=== PATIENT | female | born 1980 | race Caucasian/White ===

== ENCOUNTER 2020-06-23 14:07 | Emergency (ER) | payer OTHER, SELFPAY ==
[2020-06-23 16:22] VITALS: BP 113/71; PULSE 88; RESP 16; TEMP 37.2; O2SAT 99; BMI 20.3
--- NOTE | 2020-06-23 16:26 | ED.GENADULT ---
HPI - General Adult General Chief complaint: Upper Respiratory Symptoms Stated complaint: flu like symptoms Time Seen by Provider: 06/23/20 16:16 Source: patient Mode of arrival: ambulatory Limitations: no limitations History of Present Illness HPI narrative: 39-year-old female presenting to the ED with complaints of generalized fatigue, chills, body aches, runny nose, sore throat which has resolved, runny nose, nausea and Increased urgency/frequency times a few days worse today. Reports that she was seen by her primary care provider and had a COVID swab yesterday Although results are pending still at this time. denies any other additional complaints or concerns at this time. Related Data Home Medications Medication Instructions Recorded Confirmed fluconazole 150 mg tablet 150 mg PO ONCE 06/23/20 norgestimate-ethinyl estradiol 1 tab PO DAILY 06/23/20 0.18 mg/0.215mg/0.25mg-35 mcg(28)tablet Previous Rx's Medication Instructions Recorded acetaminophen-codeine 1 tab PO Q8H PRN #14 tab 06/23/20 azithromycin See Rx Instructions .ROUTE 06/23/20 .COMPLEX #6 tab cyclobenzaprine 10 mg PO TID PRN #14 tab 06/23/20 Allergies Allergy/AdvReac Type Severity Reaction Status Date / Time No Known Allergies Allergy Verified 06/23/20 16:17 Review of Systems Review of Systems: Constitutional : No Fever, ENT/Mouth : No Ear Pain, No Nasal Congestion, No Sinus Pain, No Hoarseness, No sore throat, No Rhinorrhea, No Swallowing Difficulty Eyes: No Eye Pain, No Swelling, No Redness, No Foreign Body, No Discharge, No Vision Changes Cardiovascular : No Chest Pain, No SOB, No Dyspnea on Exertion, No Orthopnea, No Edema, No Palpitations Respiratory : No Wheezing, No Dyspnea Gastrointestinal : No Vomiting, No Diarrhea, No Constipation, No abdominal Pain, Genitourinary : No Flank Pain, No Urinary Flow Changes, No Hesitancy Musculoskeletal : No joint pain, No Joint Swelling Skin : No Skin Lesions, No rash Neuro : No Weakness, No Headache Endocrine : No Polyuria, No Polydipsia, No Temperature Intolerance Yes all other systems are reviewed and are negative [facility] Past Medical History Attestation statement: The following information was validated with the patient. Medical History Insomnia Social History Social History Advance Directives: No Advance Directives Information Provided: No Physical Exam Vital Signs: Vital Signs: Vital Signs Temp Pulse Resp BP Pulse Ox 06/23/20 16:22 99.0 F 88 16 113/71 99 Body Mass Index 20.3 vital signs have been reviewed as normal and appeared to be correct. Blood pressure normal. Heart rate normal. Respiration rate normal. Temperature normal. Oxygen saturation normal. Appearance: Alert. Oriented X3. No acute distress. Head: Normal external exam. Normocephalic. Atraumatic. No Kendrick signs noted. No raccoon eyes noted Eyes: PERRLA. EOMI. Conjunctiva and sclera normal. Eyelids normal. ENT: EAC normal. TM's Normal. Pharynx normal. Uvula midline. Moist mucous membranes. No trismus noted. No drooling noted. No muffled voice noted. Neck: Normal inspection. Neck supple. FROM. No adenopathy. Thyroid Normal. No meningeal signs. No neck mass noted. CVS: Normal heart rate and rhythm. Heart sound normal. No murmurs noted. Pulses normal throughout. Respiratory: No respiratory distress. Painless inspiration. Breath sounds normal. No wheezes/rales/rhonchi noted. Chest nontender. No accessory muscle usage noted or decreased air movement noted. Abdomen: Soft and nontender. Bowel sounds normal in all 4 quadrants. No distention noted. No organomegaly noted. No visible injury noted. Back: No CVA tenderness. Full range of motion noted. Skin: Skin warm and dry. Normal skin color. Normal skin turgor. No rashes/lesions/lacerations noted. Extremities: No lower extremity edema. Extremities exhibit normal range of motion. Extremities nontender. Neuro: Oriented X 3. No motor deficit. No sensory deficit. Reflexes normal. Course Course Course Narrative: 39-year-old female presenting to the ED with complaints of generalized fatigue, chills, body aches, runny nose, sore throat which has resolved, runny nose, nausea and Increased urgency/frequency times a few days worse today. Reports that she was seen by her primary care provider and had a COVID swab yesterday Although results are pending still at this time. denies any other additional complaints or concerns at this time. - Plan: CXR, UA and UHCG And re-evaluate. Reevaluation(s) Reevaluation #1: UA within normal limits no evidence of UTI. Chest x-ray within normal limits no acute processes noted. Will DC home with symptomatic treatment along with instructions to return if any new or worsening symptoms to follow-up with primary care provider. Patient understands agrees the plan. Time: 17:31 Medical Decision Making Lab Data Labs: Lab Results 06/23/20 Range/Units 16:59 Urine Color YELLOW Urine Appearance HAZY Urine pH 6.0 (5.0-8.0) Ur Specific [place] 1.025 (1.005-1.025) Urine Protein NEG (NEG-TRACE) MG/DL Urine Glucose (UA) NEG (NEG) MG/DL Urine Ketones NEG (NEG) MG/DL Urine Blood NEG (NEG) Urine Nitrite NEG (NEG) Ur Leukocyte Esterase NEG (NEG) Urine Test NEGATIVE (NEGATIVE) Imaging Data Chest x-ray: Attestation: I personally reviewed and interpreted this imaging study as follows: Radiologist's impression: FINDINGS: The lungs are clear. The vascularity is normal. There is no airspace consolidation or groundglass opacity. No effusion. The heart is normal in size. The hilar and mediastinal contours are normal. No acute bony abnormality. IMPRESSION: Unremarkable examination. Discharge Plan Discharge Clinical Impression: Acute viral syndrome Patient Disposition: Home, Self-Care Instructions: COVID-19 (Coronavirus Disease 2019) (ED) Additional Instructions: Based on your symptoms and history we have sent a COVID-19. Although your RESULT IS PENDING at this time. RESULTS should return within 72 hours. At this time you will be contacted with either NEGATIVE OR POSITIVE results. -Please wait until we contact you for your results. At this time you will be okay for discharge. Please plan for self quarantine for up to 14 days. Do not expose yourself to others. You may not go to work. If testing does come back negative you may return to activities as long as you are no longer having any symptoms for at least 3 days. Please continue to follow cold instructions and wash your hands frequently. You may take Tylenol as directed on the bottle for pain or fever. Patient seen in the emergency department on 06/23/2020 and should be excused from work until negative test results AND until 72 hours without any symptoms AND at least 10 days have passed since symptoms first appeared or since last exposure to COVID-19 positive patient CDC Guidelines for home isolation: - Stay away from others - WEAR A MASK if you are sick AND STAY HOME - Cover your mouth and nose with a tissue when you cough or sneeze. Dispose of tissues in a lined trash can and wash your hands immediately with soap and water for at least 20 seconds. If soap and water are not available, clean hands with alcohol-based hand certified medication technician that contains at least 60% alcohol. - Clean your hands often with soap and water for at least 20 seconds - Avoid touching your eyes, nose and mouth with unwashed hands - Do not share dishes, drinking glasses, cups, eating utensils, towels, or bedding with other people in your home. After using these items, wash them thoroughly with soap and water or put in the live source operator. - Clean high-touch surfaces in your isolation area ( sick room and bathroom) every day; let a caregiver clean and disinfect high-touch surfaces in other areas of the home. Clean the area or item with soap and water or another detergent if it is dirty. Then, use a household disinfectant. - Limit contact with pets and animals: If you must care for a pet, wash your hands before and after interacting with them). Prescriptions: New azithromycin 250 mg tablet See Rx Instructions .ROUTE .COMPLEX Qty: 6 RF: 0 acetaminophen-codeine 300-30 mg tablet 1 tab PO Q8H PRN (Reason: pain) Qty: 14 RF: 0 cyclobenzaprine 10 mg tablet 10 mg PO TID PRN (Reason: muscle spasm) Qty: 14 RF: 0 No Action fluconazole 150 mg tablet 150 mg PO ONCE RF: 0 norgestimate-ethinyl estradiol 0.18/0.215/0.25 mg-35 mcg (28) tablet 1 tab PO DAILY RF: 0 Referrals: Duglas Montez FNP-BC [Primary Care Provider] - 2 days Stand Alone Forms: Work/School Release Print Language: Bahraini
--- NOTE | 2020-06-23 16:35 | XR_ITS ---
EXAMINATION: XR CHEST CLINICAL INFORMATION: COVID like symptoms COMPARISON: None TECHNIQUE: Portable upright AP view of the chest was obtained. FINDINGS: The lungs are clear. The vascularity is normal. There is no airspace consolidation or groundglass opacity. No effusion. The heart is normal in size. The hilar and mediastinal contours are normal. No acute bony abnormality. IMPRESSION: Unremarkable examination.
[2020-06-23 17:13] LABS: Glucose Urine UA NEG (NEG); Leukocyte Esterase Urine NEG (NEG); Nitrite Urine NEG (NEG); Specific Gravity - Urine 1.025 (1.005-1.025); Urine Blood NEG (NEG); Urine Ketones NEG (NEG); Urine Protein NEG (NEG-TRACE)
[2020-06-23 17:16] LABS: Appearance Urine HAZY; Color Urine YELLOW
[2020-06-23 17:17] LABS: UPreg QC Valid YES; Urine Pregnancy NEGATIVE (NEGATIVE)
== END 2020-06-23 17:41 | disposition home or self-care (01) ==
PROVIDERS: Physician Assistant Medical; Emergency Provider Emergency Medicine Emergency Medical Services; PCP Nurse Practitioner Family
DX: B34.9 Viral infection, unspecified (principal)
CPT/HCPCS: 71045; 81003; 81025; 99283; 99284

== ENCOUNTER 2021-08-10 14:29 | Outpatient (REF) | payer OTHER, SELFPAY ==
--- NOTE | ~2021-08-10 | XR_ITS ---
EXAMINATION: XR CHEST CLINICAL INFORMATION: Cough COMPARISON: Chest radiograph 06/23/2020 TECHNIQUE: 2 views of the chest were obtained. FINDINGS: The lungs are clear. There is no airspace consolidation or groundglass opacity or effusion. The costophrenic sulci are clear. The heart is normal in size. The hilar and mediastinal contours are normal. Bony structures suggest some faint callus formation overlying the right posterior lateral ninth rib suggesting healing occult fracture. No visible fracture line or destructive process. XR/XR chest 2V IMPRESSION: 1. No infiltrate or effusion. 2. Suspect healing fracture right posterior lateral ninth rib.
== END 2021-08-10 14:30 | disposition home or self-care (01) ==
LOC: HO.HMGCX 14:29
PROVIDERS: PCP Nurse Practitioner Family; Visit Provider Nurse Practitioner Family
DX: R05.9 Cough, unspecified (principal)
CPT/HCPCS: 71046

== ENCOUNTER 2023-05-16 14:49 | Outpatient (AMB) | payer OTHER, SELFPAY ==
[2023-05-16 15:00] VITALS: BP 108/70; PULSE 67; O2SAT 100; BMI 23.9
--- NOTE | 2023-05-16 15:00 | A.OFFPC_ITS ---
Vital Signs 05/16/23 15:00 Height 5 ft 7 in Weight 152 lb 8 oz BMI 23.9 BP 108/70 Blood Pressure Location Rt brachial Position Sitting Pulse 67 Pulse Source Pulse Oximeter Pulse Oximetry (%) 100 Oxygen Delivery Method Room Air Intake Visit Reasons: Annual PE Allergies No Known Allergies Allergy (Verified 05/16/23 15:02) Medication List - Last Reconciled 05/16/23 by MAYNOR Person trazodone 100 mg (2 x 50 mg) PO BEDTIME PRN 90 days Tobacco use date assessed: 05/16/23 Dental Screening Dental Screen Date: 05/16/23 Did you have a dental visit in the last 12 months?: No Did you have a dental problem in the last 6 months where you did not have access to dental care?: No Was dental information given to patient?: Patient has dentist HPI Annual PE HPI Details Pt is here for a PE. Will order labs. 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 Due for mammo, will order. Pt has a hx of skin cancer. Will refer to derm. 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 Donnie Delcid, Chen Zurita, Nik العلي and colleagues, with an educational john paul from [employer]. Review of Systems Const Denies chills and Denies fever(s) Eyes Denies blurry vision ENT Denies vertigo, Denies dizziness and Denies sore throat Card Denies chest pain at rest, Denies chest pain with activity, Denies diaphoresis, Denies dyspnea and Denies dyspnea on exertion Resp Denies cough, Denies dyspnea, Denies dyspnea on exertion and Denies wheezing GI Denies abdominal pain, Denies melena, Denies hematochezia, Denies constipation, Denies diarrhea and Denies loose stools Denies hematuria Musc Denies numbness and Denies tingling Skin/Breast Denies lesions Neuro Denies vertigo, Denies dizziness, Denies numbness and Denies tingling Psych Denies anxiety, Denies depression, Denies homicidal ideation, Denies suicidal ideation and Denies other (substance abuse) Aller/Immun Denies wheezing Physical exam (Primary Care) Vital Signs: Last Vital Signs Pulse 67 05/16/23 15:00 BP 108/70 05/16/23 15:00 Pulse Ox 100 05/16/23 15:00 Oxygen Delivery Method Room Air 05/16/23 15:00 BMI result Body Mass Index 23.9 Tobacco/Smoking Status: Tobacco use Status Tobacco use date assessed 05/16/23 05/16/23 15:04 Patient Tobacco Use Status Current everyday Tobacco 05/16/23 15:04 e-Cigarette/Vaping Use Never Used 05/16/23 15:04 Thrive Assessment: Date of Thrive Assessment Date Thrive assessed 11/29/21 05/16/23 15:04 Const General: cooperative Nutritional Appearance: well nourished Orientation/consciousness: patient oriented x3 HENMT Head: Yes normal to inspection, Yes normocephalic and Yes atraumatic Ears: TM's normal bilaterally Eyes General: appearance normal, both eyes and all related structures Alignment and Position: alignment normal and position normal Neck Neck: Yes normal visual inspection and Yes no lymphadenopathy Thyroid: Thyroid normal Resp Effort & Inspection: normal respiratory effort Auscultation: clear to auscultation bilaterally Cardio Rate: regular rate Rhythm: regular rhythm Heart sounds: S1 normal heart sound present, S2 normal heart sound present and no murmurs GI Palpation (GI): Soft to palpation and nontender Auscultation: normal bowel sounds Skin Rashes: no rashes Neuro General: patient oriented x3, moves all extremities, no focal motor deficits and deep tendon reflexes 2+ bilaterally Romberg Test: Negative Psych Appearance: grossly normal Mental Status: mental status grossly normal Speech and movement: Normal speech and movement present Affect: normal affect Attitude: cooperative Thought process: Normal thought process present Thought content: Normal thought content present Insight: Good insight present (Psych) Judgement: Good judgement present (Psych) Assessment and Plan Assessment & Plan (1) Physical exam: Code(s): Z00.00 - Encounter for general adult medical examination without abnormal findings Plan: Labs ordered (2) Skin cancer: Code(s): C44.90 - Unspecified malignant neoplasm of skin, unspecified Plan: Referred to derm Plan The patient agreed to the use of a medical billing specialist for this encounter. Scribed for MAYNOR Contreras by Amy Mcknight medical billing specialist, on 05/16/2023 at 15:05 EST. Orders: Orders TSH reflex Free T4 Today Z00.00 - Encounter for general adult medical examination without abnormal findings UA CC w/rflx Micro + Cult Today Z00.00 - Encounter for general adult medical examination without abnormal findings Lipid Panel Today Z00.00 - Encounter for general adult medical examination without abnormal findings Complete Blood Count Auto Diff Today Z00.00 - Encounter for general adult medical examination without abnormal findings Comprehensive [place]. Panel Fast Today Z00.00 - Encounter for general adult medical examination without abnormal findings MM screening mammo BI Today Z12.31 - Encounter for screening mammogram for malignant neoplasm of breast Referrals Dermatology Referral C44.90 - Unspecified malignant neoplasm of skin, unspecified Coding Level of Care Code Est Pt Prev Care 40-64y(79866) Diagnoses Physical exam Z00.00 Skin cancer C44.90
== END 2023-05-16 15:50 | disposition home or self-care (01) ==
PROVIDERS: Visit Provider Nurse Practitioner Family
DX: Z00.00 Encounter for general adult medical examination without abnormal findings (principal); C44.90 Unspecified malignant neoplasm of skin, unspecified
CPT/HCPCS: 99396

== ENCOUNTER 2023-11-14 15:38 | Outpatient (AMB) | payer OTHER, SELFPAY ==
--- NOTE | 2023-11-14 15:45 | MHC.PC.OV ---
Vital Signs 11/14/23 15:47 Height 5 ft 7 in Weight 151 lb BMI 23.6 BP 110/70 Blood Pressure Location Lt brachial Position Sitting Pulse 65 Pulse Source Pulse Oximeter Pulse Oximetry (%) 99 Oxygen Delivery Method Room Air Intake Visit Reasons: 6 Month follow up Intake Note: pt is here for 6 month follow up Ore Sampler Required: No Accompanied by: Self / Same As Patient Allergies No Known Allergies Allergy (Verified 11/14/23 17:17) Medication List - Last Reconciled 11/14/23 by MAYNOR Person trazodone 100 mg (2 x 50 mg) PO BEDTIME PRN 90 days Tobacco use date assessed: 11/14/23 Dental Screening Dental Screen Date: 11/14/23 Did you have a dental visit in the last 12 months?: Yes Did you have a dental problem in the last 6 months where you did not have access to dental care?: No Was dental information given to patient?: Patient has dentist HPI 6 Month follow up HPI Details Pt c/o increased fatigue. She reports feeling very sluggish throughout the day. She also reports perimenopausal symptoms. Will order labs including FSH and LH. Encouraged pt to have her PE labs performed. Denies fever, chills, and dizziness. 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 How often do you have a drink containing alcohol?: Monthly or less 2. How many drinks containing alcohol do you have on a typical day when you are drinking?: 1 or 2 3. How often do you have six or more drinks on one occasion?: Never Total Score: 1 Score Reviewed/Action Taken: Yes JAMARI-7 AMB Questionnaire JAMARI-7 Date JAMARI - 7 assessed: 11/29/21 Feeling nervous, anxious, or on edge: 0 = Not at all Not being able to stop or control worryin = Not at all Worrying too much about different things: 0 = Not at all Trouble relaxin = Not at all Being so restless that it is hard to sit still: 0 = Not at all Becoming easily annoyed or irritable: 0 = Not at all Feeling afraid as if something awful might happen: 0 = Not at all Total JAMARI-7 score (0-4 normal; 5-9 mild; 10-14 moderate; 15-21 severe): 0 Source: Developed by Drs. Donnie Delcid, hCen Zurita, Nik العلي and colleagues, with an educational john paul from [employer]. JAMARI-7 Assessment Billing JAMARI-7 Assessment Tool: JAMARI-7 Assessment 14858 Review of Systems Const Reports as per HPI Physical exam (Primary Care) Vital Signs: Last Vital Signs Pulse 65 11/14/23 15:47 BP 110/70 11/14/23 15:47 Pulse Ox 99 11/14/23 15:47 Oxygen Delivery Method Room Air 11/14/23 15:47 BMI result Body Mass Index 23.6 Tobacco/Smoking Status: Tobacco use Status Tobacco use date assessed 11/14/23 11/14/23 15:51 Patient Tobacco Use Status Current everyday Tobacco 11/14/23 15:51 e-Cigarette/Vaping Use Never Used 11/14/23 15:51 Thrive Assessment: Date of Thrive Assessment Date Thrive assessed 11/29/21 11/14/23 15:51 Const General: cooperative Orientation/consciousness: patient oriented x3 Resp Auscultation: clear to auscultation bilaterally Cardio Rate: regular rate Rhythm: regular rhythm Heart sounds: S1 normal heart sound present, S2 normal heart sound present and no murmurs Neuro General: patient oriented x3 Extrem Right lower extremity: no edema Left lower extremity: no edema Psych Appearance: grossly normal Mental Status: mental status grossly normal Speech and movement: Normal speech and movement present Affect: normal affect Attitude: cooperative Thought process: Normal thought process present Thought content: Normal thought content present Insight: Good insight present (Psych) Judgement: Good judgement present (Psych) Assessment and Plan Assessment & Plan (1) Fatigue: Code(s): R53.83 - Other fatigue Plan: Labs ordered Plan The patient agreed to the use of a medical claims manager for this encounter. Scribed for HILARIO Contreras-NIVIA by Amy Mcknight medical claims manager, on 11/14/2023 at 16:05 EST. Orders: Orders Lutenizing Hormone Today R53.83 - Other fatigue Estrogen Today R53.83 - Other fatigue IRON PROFILE Today R53.83 - Other fatigue Ferritin Today R53.83 - Other fatigue Follicle Stimulating Hormone Today R53.83 - Other fatigue Vitamin B12 and Folate Today R53.83 - Other fatigue Tick-borne Disease Molecular Today R53.83 - Other fatigue Coding Level of Care Code Est Pt Level 3 (11624) Diagnoses Fatigue R53.83 Additional Codes JAMARI-7 Assessment Billing - JAMARI-7 Assessment Tool: JAMARI-7 Assessment [id number] ([id number])
[2023-11-14 15:47] VITALS: BP 110/70; PULSE 65; O2SAT 99; BMI 23.6
== END 2023-11-14 16:54 | disposition home or self-care (01) ==
PROVIDERS: PCP Nurse Practitioner Family; Visit Provider Nurse Practitioner Family
DX: R53.83 Other fatigue (principal)
CPT/HCPCS: 99213

== ENCOUNTER 2023-11-18 07:52 | Outpatient (REF) | payer OTHER, SELFPAY ==
[2023-11-18 11:55] LABS: MANUAL DIFF FLAG NO
[2023-11-18 12:01] LABS: Basophils Absolute Auto 0.1 X10*3/uL (0.0-0.2); Basophils Percent Auto 1.5 % (0-2); Eosinophils Absolute Auto 0.1 X10*3/uL (0.0-0.4); Eosinophils Percent Auto 1.4 % (0-4); Hematocrit 41.6 % (37.0-47.0); Hemoglobin 13.7 g/dl (12.0-16.0); Imm Gran Abs Auto 0.02 X10*3/uL (0.00-0.03); Imm Gran Pct Auto 0.3 % (0.0-0.4); Lymphocytes Absolute Auto 2.3 X10*3/uL (1.2-4.9); Lymphocytes Percent Auto 39.2 % (20-40); Mean Corpuscular HGB Conc 32.9 g/dl (31.0-35.0); Mean Corpuscular Hemoglobin 29.4 pg (27.0-33.0); Mean Corpuscular Volume 89.3 fL (80.0-98.0); Mean Platelet Volume 9.2 fL (9.4-12.3); Monocytes Absolute Auto 0.4 X10*3/uL (0.1-1.2); Monocytes Percent Auto 7.5 % (2-11); Neutrophils Absolute Auto 2.9 x10*3/uL (2.0-8.3); Neutrophils Percent Auto 50.1 % (45-73); Platelet Count 271 X10*3/uL (160-400); Red Blood Count 4.66 X10*6/uL (4.20-5.50); Red Cell Distribution Width 13.2 % (11.0-16.0); White Blood Count 5.9 X10*3/uL (4.8-10.8)
[2023-11-18 12:35] LABS: Appearance Urine Cloudy; Color Urine Yellow; Glucose Urine UA Negative (Negative); Leukocyte Esterase Urine Negative (Negative); Nitrite Urine Negative (Negative); PH 5.5 (5.0-9.0); Urine Blood Negative (Negative); Urine Ketones Negative (Negative); Urine Protein Negative (Neg-Trace)
[2023-11-18 12:39] LABS: Alanine Aminotransferase 10 U/L (0-31); Albumin Level 4.3 g/dL (3.5-5.0); Alkaline Phosphatase 60 U/L (39-117); Anion Gap 12 (12-20); Aspartate Amino Transferase 13 U/L (5-31); Bilirubin Total 0.3 mg/dL (0.0-1.0); Blood Urea Nitrogen 13 mg/dL (9-16); Calcium 9.5 mg/dL (8.4-10.2); Carbon Dioxide 26 mmol/L (22-29); Chloride 106 mmol/L (96-108); Cholesterol 191 mg/dL (<200); Estimated Glomerular Filt Rate > 60; Glucose Fasting 89 mg/dL (60-99); HDL Cholesterol 66 mg/dL (>40); Iron 94 mcg/dL (30-160); LDL Cholesterol Calculated 107 mg/dL (<100); Percent Iron Saturation 38 % (15-50); Potassium 4.4 mmol/L (3.3-5.1); Sodium 140 mmol/L (135-145); Total Iron Binding Capacity 247 mcg/dL (228-428); Triglycerides 90 mg/dL (<150); Unsaturated Iron Binding 153 ug/dL
[2023-11-18 12:46] LABS: Ferritin 45 ng/mL (10-250); TSH reflex Free T4 1.92 uIU/mL (0.32-4.0)
[2023-11-18 12:58] LABS: Folate 6.2 ng/mL (> or = 4.0); Vitamin B12 1656 pg/mL (200-900)
[2023-11-20 04:47] LABS: Lutenizing Hormone 16.4 mIU/mL
[2023-11-21 00:04] LABS: A. Phagocytphilium DNA,RT-PCR NOT DETECTED (NOT DETECTED); Babesia Microti DNA, RT-PCR NOT DETECTED (NOT DETECTED); Borrelia Miyamotoi,DNA RT-PCR NOT DETECTED (NOT DETECTED); E.Chaffeensis DNA RT-PCR NOT DETECTED (NOT DETECTED); Lyme(Borrelia ssp)DNA RT-PCR NOT DETECTED (NOT DETECTED)
[2023-11-25 17:53] LABS: Estrogen 267 pg/mL
== END 2023-11-18 07:53 | disposition home or self-care (01) ==
LOC: HO.HMGCLDS 07:52
PROVIDERS: PCP Nurse Practitioner Family; Visit Provider Nurse Practitioner Family
DX: Z00.00 Encounter for general adult medical examination without abnormal findings (principal); Z13.6 Encounter for screening for cardiovascular disorders; R53.83 Other fatigue
CPT/HCPCS: 36415; 80053; 80061; 81003; 82607; 82672; 82728; 82746; 83001; 83002; 83540; 84443; 85025; 87468; 87469; 87478; 87484; 87798

== ENCOUNTER 2024-02-19 13:30 | Outpatient (AMB) | payer OTHER, SELFPAY ==
--- OUTSIDE RECORDS SUMMARY | 2024-02-19 13:33 | XMS_ITS | Continuity of Care Document ---
Author Organization [facility] Address [address] [place] [id number]- Care Team Providers Care Military Professional Name Role Phone Melida TAI, Duglas Cedeno Primary Care Physician [phone] Encounter [facility] Date(s): 11/22/22 - 11/29/22 [facility] [address] [place] [id number]- Encounter Diagnosis PFO - Patent foramen ovale(Discharge Diagnosis) - 11/22/22 Abnormal echocardiogram(Discharge Diagnosis) - 11/22/22 Tobacco use(Discharge Diagnosis) - 11/22/22 Attending Physician: Demi Holcomb MD Allergies, Adverse Reactions, Alerts No Known Allergies Immunizations Given and Recorded Vaccine Date Status Refusal Reason influenza virus vaccine, inactivated 11/25/21 Give n influenza virus vaccine, inactivated 08/06/18 Howard rded influenza virus vaccine, inactivated 06/01/11 Howard rded SARS-CoV-2 (COVID-19) mRNA BNT-162b2 vac 01/21/21 Recorded SARS-CoV-2 (COVID-19) mRNA BNT-162b2 vac 12/31/20 Recorded tetanus/diphtheria/pertussis, acel(Tdap) 09/04/13 Recorded tetanus/diphtheria/pertussis, acel(Tdap) 12/31/12 Recorded hepatitis B adult vaccine 03/26/10 Recorded hepatitis B adult vaccine 02/12/10 Recorded Medications traZODone 100 mg oral tablet 100 mg, 1, tablet, By Mouth, Daily at bedtime, Refills 0, Maintenance, 11/23/21 16:10:00 EDT, Partial fill upon patient request if the prescription is for a schedule II opioid drug. Start Date: 11/23/21 Status: Ordered Problem List Condition Confirmation Course Effective Dates Status H ealth Status Informant CVA - Cerebrovascular accident Confirmed Active Abnormal echocardiogram Confirmed Active LV non-compaction cardiomyopathy Confirmed Active PFO - Patent foramen ovale Confirmed Active Tobacco use Confirmed Active Diagnosis Diagnosis Type Effective Dates Health Status Clinical Service Informant PFO - Patent foramen ovale Discharge Diagnosis 11/22/22 Abnormal echocardiogram Discharge Diagnosis 11/22/22 Tobacco use Discharge Diagnosis 11/22/22 Vital Signs Most recent to oldest [Reference Range]: 1 Height 169 cm (11/22/22 3:40 PM) Weight 68.2 kg (11/22/22 3:40 PM) Oxygen Saturation [94-100 %] 100 % (11/22/22 3:40 PM) Pulse Rate [55-90 bpm] 73 bpm (11/22/22 3:40 PM) Body Mass Index [18.5-24.99 kg/m2] 23.88 kg/m2 (11/22/22 3:40 PM) Blood Pressure [90-138/55-84 mm Hg] 108/ 66mm Hg (11/22/22 3:40 PM) Blood pressure sites Arm, right (11/22/22 3:40 PM) Social History Social History Type Response Smoking Status 10 or more cigarette s (1/2 pack or more)/day in last 30 days; Other: 1ppd x 23y; entered on: 11/23/22 Sex Cardiology Outpatient Note * Aicha PETTIT, Demi Rogers: PERFORM Event Display: Cardiology Note Office Authored Date: Patient: ??GAEL STRICKLAND ? Age:??42 Years?Sex:??Female?:??1980?? Indication for Consult follow up care History of Present Illness/Interval History Past visit: ??41-year-old female with PMH significant for Right exotropia, tobacco use (1-pack/day), and oral contraceptive use,??who presented for evaluation of acute onset left-sided numbness/tingling, and weakness while at work. ??She was evaluated in the [facility] emergency room??and initial??head CT was unremarkable,??she had continued symptoms and concern for??left lower extremity drift??andsensory changes in the left upper extremity,??she was recommended [place] K??which she received 11/23. ??She was subsequently admitted to neuro ICU for monitoring.?She had a repeat head CT was stable.?She also had??a brain MRI which showed no stroke??or abnormality.??ECHO with normal LV function. EF: 55-60%. Though, prominent apical trabeculation (? foreshortening, but LV noncompaction not excluded). PFO also noted on bubble study.??LOC with +PFO and lambl's excrescense. BLE US without DVT . ??Per chart review she is described as having resolution of neurologic symptoms prior to discharge. ??I n??discussing with her she has had episodic recurrences in left-sided as well as??now right-sided tingling that occurred post discharge.?? She was taken off OCP and has had headaches as well has??constitutional complaints, hot flashes.?? She cut down from 1-1/2 pack a day smoking to 1 pack a day.??She has not had any??weakness.?? She denies any??facial symptoms or word finding issues.?? She was seen??as an outpatient with telehealth neurology evaluation where??diagnosis of initial stroke was questioned.?? She was referred here for evaluation of PFO.?? She denies??palpitations, chest pain, pressure, heaviness, PND, orthopnea, edema.?? She has not had syncope. ?? Current visit: She denies cardiovascular complaints. ??She has been well since her last visit.? Her 30-day event monitor showed no arrhythmias.?? Question of noncompaction from MRI??resulted inreferral to advanced heart??failure clinic, appreciate Dr. Lange's evaluation.?? She also was noted to have??a PFO.?? We shared the same??question about whether a CVA??had occurred.?? He suggested evaluation with Dr. Bee for potential PFO closure.?? Her primary care provider had stopped her aspirin, Plavix, statin.?? She is off these meds. Physical Exam Vitals & Measurements UT:??73?? BP:??108/66?? SpO2:??100%?? HT:??169??cm?? WT:??68.2??kg?? BMI:??23.88?? Weight lb/oz: 150 lb 6 oz HEENT: EOMI neck: JVD flat Pulm: CTAB Cardiac: RRR no m/r/g GI: soft +BS EXT: no edema Neuro:??grossly nonfocal Skin:??warm and dry Psych: alert and coop Assessment/Plan 1.??PFO - Patent foramen ovale 2.??Abnormal echocardiogram 3.??Tobacco use This is a 42-year-old female here for evaluation of noted issues.?? She was admitted to [facility] with left arm and leg tingling, question leg weakness???concern for acute stroke for which she received tPA.?? She subsequently was admitted??to the neuro ICU, had some improvement in symptoms and resolution prior to discharge??however post discharge had recurrence of left-sided symptoms intermittently as well as??now right-sided symptoms intermittently.?? Her head CT x2 was unremarkable.?? She also had a brain MRI which was normal,??no stroke was noted.?? As part of her work-up shealso had a transthoracic echocardiogram which revealed possible trabeculation??and foreshortening,??possible noncompaction???PFO by??positive bubble study.?? She had normal LV function and no significant valvular disease.?? She underwent LOC??which also??showed??positive bubble study suggestive of small PFO.?? Color- flow does not seem to be present.?She had cardiac MRI showing noncompaction, normal LV function, by this modality she??also was noted??to have small VSD and PFO.?Smoking cessation is imperative.?Her electrocardiogram shows sinus rhythm with a short UT and poor R wave progression, no significant change from prior.?? We had a lengthy discussion about??hospital notation aswell as recent??neurologic evaluation.?? Her post discharge neurology evaluation suggest that she did not have a stroke??and??that her symptoms may be for??other etiology.?? I??would agree that??having bilateral??symptoms??would not make sense for acute??ischemic stroke??as well as??transient recurrent symptoms as she is describing??without other associated findings.? In terms of??cardiac evaluation and discussion about cardioembolic sources of CVA??we reviewed various causes including??PFO/ASD, arrhythmias specifically atrial fibrillation,??LV noncompaction as potential etiologies.?? Of course??it is important to define the original neurologic event??I have not been convinced that -her event represented a CVA,??single neurology follow-up suggested she did not have a CVA. ??Cardiac MRI??was done for noncompaction,??appreciate evaluation with advanced heart failure.??her 30-day event monitor showed no arrhythmias.?She has been referred to Dr. Bee??for further evaluation of PFO closure???her appointment is tomorrow.?At this time she is off aspirin, Plavix, statin therapy.?I do think??think taking aspirin 81 p.o. daily??would be reasonable and have recommended she restartthis.?I will have her follow-up with me in 9 months. Allergies NKA No Known Medication Allergies Home Medications aspirin 81 mg oral tablet, chewable, 81 mg, By Mouth, Daily,?Not taking atorvastatin 40 mg oral tablet, 40 mg= 1 tablet, By Mouth, Daily,?Not taking Plavix 75 mg oral tablet, 75 mg= 1 tablet, By Mouth, Daily, 3 refills,?Not taking traZODone 100 mg oral tablet, 100 mg= 1 tablet, By Mouth, Daily at bedtime Lab Results Cardiology Labs WBC: 9.2 k/mm3 (11/25/21) RBC: 4.36 m/mm3 (11/25/21) Hgb: 13 Gm/dL (11/25/21) Hct: 40.1 % (11/25/21) MCV: 92 femtoliters (11/25/21) MCH: 29.8 pg (11/25/21) MCHC:??32.4 g/dL??Low (11/25/21) Platelet Count: 271 k/mm3 (11/25/21) RDW-SD: 44.9 femtoliters (11/25/21) Nucleated RBC (Automated): 0 #/100 WBC'S (11/25/21) Abs. Neut: 6.2 k/mm3 (11/23/21) Abs. Lymph:??4.2 k/mm3??High (11/23/21) Abs. [place]: 0.6 k/mm3 (11/23/21) Abs. Eo: 0.1 k/mm3 (11/23/21) Abs. Baso: 0.1 k/mm3 (11/23/21) Neut %: 55.1 % (11/23/21) [place] %: 5.7 % (11/23/21) Eos %: 0.8 % (11/23/21) Baso %: 1 % (11/23/21) Imm Gran: 0.4 % (11/23/21) Abs. Imm Gran: 0.1 k/mm3 (11/23/21) INR: 0.9 (11/23/21) Protime (PT): 9.9 seconds (11/23/21) APTT: 25.8 seconds (11/23/21) Sodium: 138 mmol/L (10/10/22) Potassium: 3.9 mmol/L (10/10/22) Chloride: 101 mmol/L (10/10/22) Bicarbonate Level: 26 mmol/L (10/10/22) Glucose Level: 84 mg/dL (10/10/22) Hemoglobin A1C (Monitoring): 4.9 % (11/24/21) BUN: 12 mg/dL (10/10/22) Creatinine-Blood: 1 mg/dL (10/10/22) Calcium: 9.8 mg/dL (10/10/22) AST (SGOT): 14 units/L (11/23/21) Troponin T Quant: <0.01 (11/23/21) Nt-Probnp: 78 pg/mL (10/10/22) Cholesterol: 172 mg/dL (11/24/21) Triglycerides: 96 mg/dL (11/24/21) HDL Cholesterol: 74 mg/dL (11/24/21) LDL Cholesterol: 79 mg/dL (11/24/21) Non HDL Cholesterol: 98 mg/dL (11/24/21) TSH:??5.42 uIU/mL??High (11/24/21) Free T4: 0.93 ng/dL (11/24/21) Diagnostic Impression MRI MRI Cardiac W+W/O Contrast ?? 08:14:45 IMPRESSION: ?? 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 Normal LVEF and RVEF. Possible small VSD and PFO noted. ? I have personally reviewed the images and I agree with this report. WSN: [id number] ? Ordering Physician: Demi Holcomb ?? Signed By: Damaris Enrique MD, V ECG ECG 12-Lead ?? 15:52:36 Please click on pdf link to open report ?? Signed By: June Angel DO ?? ECG 12-Lead ?? 15:52:36 Ventricular Rate: 69 BPM Atrial Rate: 69 BPM P-R Interval: 126 ms QRS Duration: 80 ms Q-T Interval: 386 ms QTC Calculation(Bazett): 413 ms P [place]: 61 degrees R [place]: -16 degrees T [place]: 53 degrees Normal sinus rhythm Low voltage QRS Septal infarct (cited on or before 23-NOV-2021) Abnormal ECG When compared with ECG of 28-DEC-2021 14:58, No significant change was found Confirmed by JUNE ANGEL MD ([id number]) on 09/21/2022 4:18:43 PM ?? [place]: JUNE ANGEL MD ?? Signed By: June Angel DO Echo Echocardiogram - Complete ?? 09:45:05 Summary 1) The LV systolic function is normal. The left ventricular ejection fraction is 55-60%. There are no definite regional wall motion abnormalities. 2) There is prominent apical trabeculation - appearance may be in part due to foreshortening, but can not exclude LV noncompaction. 3) The right ventricle is normal in size and function. 4) The left atrium is normal in size. An agitated saline study (bubble study) was performed. With Valsalva, there was right to left shunting suggestive of patent foramen ovale. ?? Recommendation If clinically indicated, can consider additional cardiac imaging including LOC for additional assessment and definition of PFO, and cardiac MRI for assessment of LV noncompaction ?? Comparison No prior study available for comparison. ?? Signature ?? Signed By: Pool Gonzalez MD LOC Trans-esophageal Echocardiogram ?? 11/25/21 12:05:15 Summary 1) The LV systolic function is normal. The left ventricular ejection fraction is 60-65%. There are no definite regional wall motion abnormalities. 2) There is no thrombus in the left atrial appendage. 3) An agitated saline study (bubble study) was performed at rest and with Valsalva. There was evidence right to left shunting, suggestive of a small patent foramen ovale. 4) The aortic valve is trileaflet and normal in structure and function. There is no aortic stenosis or insufficiency. There is a small (3mm) filamentous echodensity noted on the aortic valve, consistent with a Lambl???s excrescence. 5) There is no evidence of significant plaque in the ascending aorta. ?? Comparison Comparison is made to the study of November 24, 2021. There is no significant change. ?? Signature ?? Signed By: Pool Gonzalez MD Problem List/Past Medical History Ongoing Abnormal echocardiogram CVA - Cerebrovascular accident PFO - Patent foramen ovale Tobacco use Historical No qualifying data Procedure/Surgical History No qualifying data available. Social History Alcohol Use: Current. Frequency: 1-2 times per month., 11/23/2021 Tobacco Use: 10 or more cigarettes (1/2 pack or more)/day in last 30 days., 09/21/2022 Family History Mat. Grandmother: Cancer of colon; Cancer of lung; Cancer of ovary Patient Care team information Care Team Personnel Name: Herman Lay RN Position: S RN Member Role: Primary Care Nurse Name: Janay Wright Position: S RN Member Role: Primary Care Nurse Name: Duglas Montez NP Position: Reference Physician Member Role: PCP Address: Address: [address] [place] [id number] Name: Delores Christy RN Position: S RN Member Role: Primary Care Nurse Name: Lucrecia Chan RN Position: S RN Member Role: Primary Care Nurse Care Team Related Persons Name: ANNAMARIE STRICKLAND Address: home [address] [place] [address] Name: ROBERT TOTH Address: home [address] [place] [address]
--- OUTSIDE RECORDS SUMMARY | 2024-02-19 13:33 | XMS_ITS | Continuity of Care Document ---
Author Organization [facility] Address [address] [place] [address]- Care Team Providers Care Surveillance Sensor Operator Name Role Phone Melida TAI, Duglas Cedeno Primary Care Physician [phone] Encounter [facility] Date(s): 12/28/21 - 01/04/22 [facility] [address] [place] [address]- Encounter Diagnosis PFO - Patent foramen ovale(Discharge Diagnosis) - 12/28/21 Tobacco use(Discharge Diagnosis) - 12/28/21 Echocardiogram abnormal(Discharge Diagnosis) - 12/28/21 Attending Physician: Demi Holcomb MD Referring Physician: Duglas Montez NP Allergies, Adverse Reactions, Alerts No Known Allergies [...] hepatitis B adult vaccine 02/12/10 Recorded Medications aspirin 81 mg oral tablet, chewable = 81 mg, By Mouth, Daily, # 90 tablet, 0 Refills, Maintenance, 11/26/21 9:49:00 EDT, Chew Tablet, [facility], Partial fill upon patient request if the prescription is for a schedule II opioid drug., 169, cm, 11/25/21 11:46:00 EDT, Height... Start Date: 11/26/21 Stop Date: 02/24/22 Status: Ordered atorvastatin 40 mg oral tablet 1 tablet = 40 mg, By Mouth, Daily, # 90 tablet, 0 Refills, Maintenance, 11/26/21 9:53:00 EDT, Tablet, [facility], Partial fill upon patient request if the prescription is for a scheduleII opioid drug., 169, cm, 11/25/21 11:46:00 EDT, He... Start Date: 11/26/21 Status: Ordered Plavix 75 mg oral tablet 75 mg, 1, tablet, By Mouth, Daily, # 30 tablet, Refills 3, Tot. Refills 3, Maintenance, 11/26/21 9:52:00 EDT, Route to Pharmacy Electronically, [facility], Partial fill upon patient request if the prescription is for a schedule II opioid... Start Date: 11/26/21 Status: Ordered traZODone 100 mg oral tablet 100 mg, 1, tablet, By Mouth, Daily at bedtime, Refills 0, Maintenance, 11/23/21 16:10:00 EDT, Partial fill upon patient request if the prescription is for a schedule II opioid drug. Start Date: 11/23/21 Status: Ordered Problem List Condition Effective Dates Status Health Status Inform ant CVA - Cerebrovascular accident(Confirmed) Active PFO - Patent foramen ovale(Confirmed) Active Tobacco use(Confirmed) Active Diagnosis Diagnosis Type Effective Dates Health Status Clinical Service Informant PFO - Patent foramen ovale Discharge Diagnosis 12/28/21 Tobacco use Discharge Diagnosis 12/28/21 Echocardiogram abnormal Discharge Diagnosis 12/28/21 Vital Signs Most recent to oldest [Reference Range]: 1 Height 169 cm (12/28/21 3:52 PM) Weight 65.0 kg (12/28/21 3:52 PM) Oxygen Saturation [94-100 %] 98 % (12/28/21 3:52 PM) Pulse Rate [55-90 bpm] 72 bpm (12/28/21 3:52 PM) Body Mass Index [18.5-24.99] 22.76 (12/28/21 3:52 PM) Blood Pressure [90-138/55-84 mm Hg] 107/ 58mm Hg (12/28/21 3:52 PM) Blood pressure sites Arm, left (12/28/21 3:52 PM)
--- OUTSIDE RECORDS SUMMARY | 2024-02-19 13:33 | XMS_ITS | Continuity of Care Document ---
Author Organization [facility] Address [address] [place] [id number]- Care Team Providers Care Photocomposing Machine Operator Name Role Phone Sandy Infante MD Primary Care Physician [phone] Encounter [facility] Date(s): 12/29/21 - 04/07/22 [facility] [address] [place] [address]- Attending Physician: Demi Holcomb MD Allergies, Adverse [...] Refills, Maintenance, 11/26/21 9:49:00 EDT, Chew Tablet, [facility], Partial fill upon patient request if the prescription is for a schedule II opioid drug., 169, cm, 11/25/21 11:46:00 EDT, Height... Start Date: 11/26/21 Stop Date: 02/24/22 Status: Ordered atorvastatin 40 mg oral tablet 1 tablet = 40 mg, By Mouth, Daily, # 90 tablet, 0 Refills, Maintenance, 11/26/21 9:53:00 EDT, Tablet, [facility], Partial fill upon patient request if the prescription is for a scheduleII opioid drug., 169, cm, 11/25/21 11:46:00 EDT, He... Start Date: 11/26/21 Status: Ordered Plavix 75 mg oral tablet 75 mg, 1, tablet, By Mouth, Daily, # 30 tablet, Refills 3, Tot. Refills 3, Maintenance, 11/26/21 9:52:00 EDT, Route to Pharmacy Electronically, [facility], Partial fill upon patient request [...]
--- OUTSIDE RECORDS SUMMARY | 2024-02-19 13:33 | XMS_ITS | Continuity of Care Document ---
Author Organization [facility] Address [address] [place] [id number]- Care Team Providers Care Roofer Gypsum Name Role Phone Duglas Montez NP Primary Care Physician [phone] Encounter [facility] [place] Date(s): 05/24/23 - 09/21/23 [facility] [address] [place] [address]- Attending Physician: Demi Holcomb MD Referring Physician: [...] ovale Confirmed Active Tobacco use Confirmed Active Social History Social History Type Response Smoking Status 10 or more cigarette s (1/2 pack or more)/day in last 30 days; Other: 1ppd x 23y; entered on: 11/23/22 Sex Patient Care team information Care Team Personnel Name: Herman Lay RN Position: S RN Member Role: Primary Care Nurse Name: Duglas Montez NP Position: Reference Physician Member Role: PCP Address: Address: [address] [place] [id number] Name: Delores Christy RN Position: S RN Member Role: Primary Care Nurse Name: Lucrecia Chan RN Position: S RN Member Role: Primary Care Nurse Care Team Related Persons Name: ANNAMARIE STRICKLAND Address: [address] [place] [address] Name: ROBERT TOTH Address: [address] [place] [address]
--- OUTSIDE RECORDS SUMMARY | 2024-02-19 13:33 | XMS_ITS | Continuity of Care Document ---
Author Organization [facility] Address [address] [place] [address]- Care Team Providers Care Show Worker Name Role Phone Sandy Infante MD Primary Care Physician [phone] Encounter [facility] Date(s): 03/15/22 - 04/14/22 [facility] [address] [place] [address]- Attending Physician: Grace Anton Admitting Physician: AdmtrGrace Referring Physician: AdmtrGrace Allergies, Adverse Reactions, Alerts No Known Allergies [...] Refills, Maintenance, 11/26/21 9:49:00 EDT, Chew Tablet, [facility], Partial fill upon patient request if the prescription is for a schedule II opioid drug., 169, cm, 11/25/21 11:46:00 EDT, Height... Start Date: 11/26/21 Stop Date: 02/24/22 Status: Ordered atorvastatin 40 mg oral tablet 1 tablet = 40 mg, By Mouth, Daily, # 90 tablet, 0 Refills, Maintenance, 11/26/21 9:53:00 EDT, Tablet, [facility], Partial fill upon patient request if the prescription is for a scheduleII opioid drug., 169, cm, 11/25/21 11:46:00 EDT, He... Start Date: 11/26/21 Status: Ordered Plavix 75 mg oral tablet 75 mg, 1, tablet, By Mouth, Daily, # 30 tablet, Refills 3, Tot. Refills 3, Maintenance, 11/26/21 9:52:00 EDT, Route to Pharmacy Electronically, [facility], Partial fill upon patient request if [...]
--- OUTSIDE RECORDS SUMMARY | 2024-02-19 13:33 | XMS_ITS | Continuity of Care Document ---
Author Organization [facility] Address [address] [place] [address]- Care Team Providers Care Inside Trucker Name Role Phone Melida TAI, Duglas Cedeno Primary Care Physician Encounter [facility] [place] Date(s): 11/23/22 - 12/23/22 [facility] [address] [place] [address]- Attending Physician: Grace Anton Admitting Physician: Grace Anton Referring Physician: Grace Anton Allergies, Adverse Reactions, Alerts No Known Allergies [...] Physician Member Role: PCP Address: Address: [address] [place] [id number] Name: Delores Christy RN Position: S RN Member Role: Primary Care Nurse Name: Lucrecia Chan RN Position: S RN Member Role: Primary Care Nurse Care Team Related Persons Name: ANNAMARIE STRICKLAND Address: [address] [place] [address] Name: ROBERT TOTH Address: [address] [place] [address]
--- OUTSIDE RECORDS SUMMARY | 2024-02-19 13:33 | XMS_ITS | Continuity of Care Document ---
Author Organization [facility] Address [address] [place] [phone]- Care Team Providers Care Metal Casket Maker Name Role Phone Melida TAI, Duglas Cedeno Primary Care Physician [phone] Encounter [facility] [place] Date(s): 06/13/22 - 07/13/22 [facility] [address] [place] [address]- [place] Allergies, Adverse Reactions, Alerts No Known Allergies [...] Refills, Maintenance, 11/26/21 9:49:00 EDT, Chew Tablet, [facility], Partial fill upon patient request if the prescription is for a schedule II opioid drug., 169, cm, 11/25/21 11:46:00 EDT, Height... Start Date: 11/26/21 Stop Date: 02/24/22 Status: Ordered atorvastatin 40 mg oral tablet 1 tablet = 40 mg, By Mouth, Daily, # 90 tablet, 0 Refills, Maintenance, 11/26/21 9:53:00 EDT, Tablet, [facility], Partial fill upon patient request if the prescription is for a scheduleII opioid drug., 169, cm, 11/25/21 11:46:00 EDT, He... Start Date: 11/26/21 Status: Ordered Plavix 75 mg oral tablet 75 mg, 1, tablet, By Mouth, Daily, # 30 tablet, Refills 3, Tot. Refills 3, Maintenance, 11/26/21 9:52:00 EDT, Route to Pharmacy Electronically, [facility], Partial fill upon patient [...] Informant CVA - Cerebrovascular accident Confirmed Active PFO - Patent foramen ovale Confirmed Active Tobacco use Confirmed Active Patient Care team information Care Team Personnel Name: Herman Lay RN Position: S RN Member Role: Primary Care Nurse Name: Janay Wright Position: S RN Member Role: Primary Care Nurse Name: Duglas Montez NP Position: Reference Physician Member Role: PCP Address: Address: [address] [place] [address]- Name: Delores Christy RN Position: S RN Member Role: Primary Care Nurse Name: Lucrecia Chan RN Position: S RN Member Role: Primary Care Nurse Care Team Related Persons Name: ANNAMARIE STRICKLAND Address: home [address] [place] [address] Name: ROBERT TOTH Address: home [address] [place] [address]
--- OUTSIDE RECORDS SUMMARY | 2024-02-19 13:33 | XMS_ITS | Continuity of Care Document ---
Author Organization [facility] Address [address] [facility] [place] [address]- Care Team Providers Care Flow Trader Name Role Phone Melida TAI, Duglas Cedeno Primary Care Physician Encounter 07/28/23 - 08/04/23 [facility] [address] [facility], [address] [place] [address]- Attending Physician: Duglas Montez NP Admitting Physician: Duglas Montez NP Referring Physician: Duglas Montez NP Allergies, Adverse [...] ovale Confirmed Active Tobacco use Confirmed Active Results Radiology Reports * Exam Date Time Procedure Performing Provider Status 07/28/23 11:06 AM MM Digital Mammo Screening Nicole Staley; Auth (Verified) Notes: (MM Digital Mammo Screening) Reason For Exam: Z12.31 SCREENING RESULT: MM Digital Mammo Screening PROCEDURE: MM Digital Mammo Screening INDICATION: Screening for breast cancer. No known palpable abnormalities. COMPARISON: Mammograms dating back to 12/25/2020. TECHNIQUE:: Full-field digital CC and MLO 3D tomosynthesis images of both breasts were acquired with implants displaced. In addition, 2-D MLO and CC views were obtained. Computer-aided detection (CAD) was utilized in the interpretation of this study DENSITY: The breast tissue is heterogeneously dense, which may obscure masses. FINDINGS: There are bilateral subpectoral silicone implants with no evidence of complication. There is possible architectural distortion in the central posterior right breast on the implant displaced CC view only. This should be further assessed with spot compression CC and full field ML implant displaced tomosynthesis images with possible ultrasound to follow. Scattered well-circumscribed isodense waxing and waning masses are seen bilaterally suggesting cysts. No suspicious findings are seen in the left breast. IMPRESSION: Additional imaging recommended. We will recall the patient. RECOMMENDATION: Diagnostic 3D tomosynthesis of the right breast with scheduled ultrasound BI-RADS: 0 (Incomplete - Need Additional Imaging Evaluation. Lay letter mailed to patient WSN: [id number] Ordering Physician: Duglas Montez NP Dictated By: Mackenzie Kumar MD Dictated Date/Time: 07/28/23 3:37 pm Reviewed By: Mackenzie Kumar MD Signed By: Mackenzie Kumar MD Signed Date/Time: 07/28/23 3:37 pm Transcribed By: SHANDRA Maintenance Painter Date/Time: 07/28/23 3:31 pm Birads: Social History Social History Type Response Smoking Status 10 or more cigarette s (1/2 pack or more)/day in last 30 days; Other: 1ppd x 23y; entered on: 11/23/22 Sex Patient Care team information Care Team Personnel Name: Herman Lay RN Position: S RN Member Role: Primary Care Nurse Name: Duglas Montez NP Position: Reference Physician Member Role: PCP Address: Address: [address] [place] [address]- [place] Name: Delores Christy RN Position: [facility] RN Member Role: Primary Care Nurse Name: Lucrecia Chan RN Position: [facility] RN Member Role: Primary Care Nurse Care Team Related Persons Name: ANNAMARIE STRICKLAND Address: home [address] [place] [address] Name: ROBERT TOTH Address: [address] [place] [address]
--- OUTSIDE RECORDS SUMMARY | 2024-02-19 13:33 | XMS_ITS | Continuity of Care Document ---
Author Organization [facility] Address [address] [place] [address]- Care Team Providers Care Fuel Tank Sealer And Tester Name Role Phone Melida TAI, Duglas Cedeno Primary Care Physician [facility]counter [facility] Date(s): 12/30/21 - 01/29/22 [facility] [address] [place] [address]- Attending Physician: Grace Anton Admitting Physician: AdmGrace sheridan Referring Physician: Admtr, Ar8 Allergies, Adverse Reactions, Alerts No Known Allergies [...] Refills, Maintenance, 11/26/21 9:49:00 EDT, Chew Tablet, [facility], Partial fill upon patient request if the prescription is for a schedule II opioid drug., 169, cm, 11/25/21 11:46:00 EDT, Height... Start Date: 11/26/21 Stop Date: 02/24/22 Status: Ordered atorvastatin 40 mg oral tablet 1 tablet = 40 mg, By Mouth, Daily, # 90 tablet, 0 Refills, Maintenance, 11/26/21 9:53:00 EDT, Tablet, [facility], Partial fill upon patient request if the prescription is for a scheduleII opioid drug., 169, cm, 11/25/21 11:46:00 EDT, He... Start Date: 11/26/21 Status: Ordered Plavix 75 mg oral tablet 75 mg, 1, tablet, By Mouth, Daily, # 30 tablet, Refills 3, Tot. Refills 3, Maintenance, 11/26/21 9:52:00 EDT, Route to Pharmacy Electronically, [facility], Partial fill upon patient [...]
--- OUTSIDE RECORDS SUMMARY | 2024-02-19 13:33 | XMS_ITS | Continuity of Care Document ---
Author Organization [facility] Address Unknown Care Team Providers Care Coding File Clerk Name Role Phone Melida TAI, Duglas Cedeno Primary Care Physician [phone] Encounter [facility] [place] [place] Date(s): 12/16/21 - 01/15/22 [facility] Attending Physician: Grace Anton Admitting Physician: Grace [...] Refills, Maintenance, 11/26/21 9:49:00 EDT, Chew Tablet, [facility], Partial fill upon patient request if the prescription is for a schedule II opioid drug., 169, cm, 11/25/21 11:46:00 EDT, Height... Start Date: 11/26/21 Stop Date: 02/24/22 Status: Ordered atorvastatin 40 mg oral tablet 1 tablet = 40 mg, By Mouth, Daily, # 90 tablet, 0 Refills, Maintenance, 11/26/21 9:53:00 EDT, Tablet, [facility], Partial fill upon patient request if the prescription is for a scheduleII opioid drug., 169, cm, 11/25/21 11:46:00 EDT, He... Start Date: 11/26/21 Status: Ordered Plavix 75 mg oral tablet 75 mg, 1, tablet, By Mouth, Daily, # 30 tablet, Refills 3, Tot. Refills 3, Maintenance, 11/26/21 9:52:00 EDT, Route to Pharmacy Electronically, [facility], Partial fill upon patient request [...]
--- OUTSIDE RECORDS SUMMARY | 2024-02-19 13:33 | XMS_ITS | Continuity of Care Document ---
Author Organization [facility] Address [address] [place] [phone]- Care Team Providers Care Molder Feeder Name Role Phone Melida TAI, Duglas Cedeno Primary Care Physician Encounter [facility] [place] Date(s): 08/22/23 - 09/21/23 [facility] [address] [place] [address]- Attending Physician: Grace Anton Admitting Physician: Grace [...] Reference Physician Member Role: PCP Address: Address: [address] [place] [id number] Name: Delores Christy RN Position: S RN Member Role: Primary Care Nurse Name: Lucrecia Chan RN Position: S RN Member Role: Primary Care Nurse Care Team Related Persons Name: ANNAMARIE STRICKLAND Address: home [address] [place] [address] Name: ROBERT TOTH Address: home [address] [place] [id number]
--- OUTSIDE RECORDS SUMMARY | 2024-02-19 13:33 | XMS_ITS | Continuity of Care Document ---
Author Organization [facility] [place] Address [address] [facility] [place] [address]- Care Team Providers Care Photogravure Press Operator Name Role Phone Melida TAI, Duglas Cedeno Primary Care Physician Encounter 12/27/21 - 01/03/22 [facility] [address], [facility] [address] [place] [address]- Attending Physician: Elisha Jamison MD Admitting Physician: Elisha Jamison MD Referring Physician: Elisha Jamison MD Allergies, Adverse Reactions, Alerts No Known [...]
--- OUTSIDE RECORDS SUMMARY | 2024-02-19 13:33 | XMS_ITS | Continuity of Care Document ---
Author Organization [facility] Address [address] [place] [address]- Care Team Providers Care Maintenance Electrician Name Role Phone Sandy Infante MD Primary Care Physician Encounter [facility] Date(s): 03/15/22 - 03/22/22 [facility] [address] [place] [address]- Encounter Diagnosis CVA - Cerebrovascular accident(Discharge Diagnosis) - 03/15/22 PFO - Patent foramen ovale(Discharge Diagnosis) - 03/15/22 Tobacco use(Discharge Diagnosis) - 03/15/22 Abnormal echocardiogram(Discharge Diagnosis) - 03/15/22 Attending Physician: Demi Holcomb MD Allergies, Adverse [...] Refills, Maintenance, 11/26/21 9:49:00 EDT, Chew Tablet, [facility], Partial fill upon patient request if the prescription is for a schedule II opioid drug., 169, cm, 11/25/21 11:46:00 EDT, Height... Start Date: 11/26/21 Stop Date: 02/24/22 Status: Ordered atorvastatin 40 mg oral tablet 1 tablet = 40 mg, By Mouth, Daily, # 90 tablet, 0 Refills, Maintenance, 11/26/21 9:53:00 EDT, Tablet, [facility], Partial fill upon patient request if the prescription is for a scheduleII opioid drug., 169, cm, 11/25/21 11:46:00 EDT, He... Start Date: 11/26/21 Status: Ordered Plavix 75 mg oral tablet 75 mg, 1, tablet, By Mouth, Daily, # 30 tablet, Refills 3, Tot. Refills 3, Maintenance, 11/26/21 9:52:00 EDT, Route to Pharmacy Electronically, [facility], Partial fill upon patient [...] Effective Dates Health Status Clinical Service Informant CVA - Cerebrovascular accident Discharge Diagnosis 03/15/22 PFO - Patent foramen ovale Discharge Diagnosis 03/15/22 Tobacco use Discharge Diagnosis 03/15/22 Abnormal echocardiogram Discharge Diagnosis 03/15/22 Vital Signs Most recent to oldest [Reference Range]: 1 Height 169 cm (03/15/22 10:32 AM) Weight 64.8 kg (03/15/22 10:32 AM) Oxygen Saturation [94-100 %] 98 % (03/15/22 10:32 AM) Pulse Rate [55-90 bpm] 69 bpm (03/15/22 10:32 AM) Body Mass Index [18.5-24.99] 22.69 (03/15/22 10:32 AM) Blood Pressure [90-138/55-84 mm Hg] 108/ 50mm Hg (03/15/22 10:32 AM) Blood pressure sites Arm, left (03/15/22 10:32 AM)
--- OUTSIDE RECORDS SUMMARY | 2024-02-19 13:33 | XMS_ITS | Continuity of Care Document ---
Author Organization [facility] Address [address] [place] [address]- Care Team Providers Care Rosin Barrel Filler Name Role Phone Melida TAI, Duglas Cedeno Primary Care Physician Encounter [facility] Date(s): 11/23/21 - 11/26/[address] [id number] Discharge Disposition: A-D/C Home Attending Physician: Lynette Shearer MD Admitting Physician: Alesha Christiansen MD Referring Physician: Not on Staff, Referring MD Allergies, Adverse Reactions, Alerts No Known Medication Allergies Immunizations Given and Recorded Vaccine Date [...] Refills, Maintenance, 11/26/21 9:49:00 EDT, Chew Tablet, [facility], Partial fill upon patient request if the prescription is for a schedule II opioid drug., 169, cm, 11/25/21 11:46:00 EDT, Height... Start Date: 11/26/21 Stop Date: 02/24/22 Status: Ordered atorvastatin 40 mg oral tablet 1 tablet = 40 mg, By Mouth, Daily, # 90 tablet, 0 Refills, Maintenance, 11/26/21 9:53:00 EDT, Tablet, [facility], Partial fill upon patient request if the prescription is for a scheduleII opioid drug., 169, cm, 11/25/21 11:46:00 EDT, He... Start Date: 11/26/21 Status: Ordered Plavix 75 mg oral tablet 75 mg, 1, tablet, By Mouth, Daily, # 30 tablet, Refills 3, Tot. Refills 3, Maintenance, 11/26/21 9:52:00 EDT, Route to Pharmacy Electronically, [facility], Partial fill upon patient request if the prescription is for a schedule II opioid... Start Date: 11/26/21 Status: Ordered traZODone 100 mg oral tablet 100 mg, 1, tablet, By Mouth, Daily at bedtime, Refills 0, Maintenance, 11/23/21 16:10:00 EDT, Partial fill upon patient request if the prescription is for a schedule II opioid drug. Start Date: 11/23/21 Status: Ordered Results Radiology Reports * Exam Date Time Procedure Performing Provider Status 11/23/21 1:01 PM Chest Portable Ming , Bety; Auth (V erified) Notes: (Chest Portable) Reason For Exam: Stroke;Other: RESULT: Chest Portable Chest Portable Hx of Present Illness: Pt. was at work , felt dizzy with left sided weakness, and initial ataxia.; Reason: Other:; Stroke; Clinical Question(s): CHF COMPARISON: None. FINDINGS: LINES AND TUBES: None. LUNGS AND PLEURA: Clear lungs. Normal pulmonary vascularity. No pleural effusion. No pneumothorax. HEART, MEDIASTINUM AND BRYAN: Heart is normal in size. Normal upper mediastinal and hilar contour. BONES AND SOFT TISSUES: No acute abnormality. IMPRESSION: No acute abnormality. WSN: [id number] Ordering Physician: Asher Moore Dictated By: Guy De Leon MD Dictated Date/Time: 11/23/21 1:08 pm Reviewed By: Guy De Leon MD Signed By: Guy De Leon MD Signed Date/Time: 11/23/21 1:08 pm Transcribed By: SHANDRA Transcribed Date/Time: 11/23/21 1:07 pm Vital Signs Most recent to oldest [Reference Range]: 1 2 3 Height 169 cm (11/25/21 11:46 AM) 169 cm (11/25/21 3:57 AM) 169 cm (11/24/21 11:56 PM) Weight 61.3 kg (11/26/21 6:34 AM) 65.2 kg (11/25/21 11:46 AM) 65.2 kg (11/25/21 7:30 AM) Oxygen Saturation [94-100 %] 99 % (11/26/21 8:00 AM) 95 % (11/26/21 3:44 AM) 99 % (11/25/21 11:59 PM) Pulse Rate [55-90 bpm] 66 bpm (11/26/21 8:00 AM) 60 bpm (11/26/21 3:44 AM) 61 bpm (11/25/21 11:59 PM) Body Mass Index [18.5-24.99] 22.41 (11/23/21 4:05 PM) 22.76 (11/23/21 3:20 PM) Blood Pressure [90-138/55-84 mm Hg] 110/56mm Hg (11/26/21 8:00 AM) 90/51mm Hg (11/26/21 3:44 AM) 103/44mm Hg (11/25/21 11:59 PM) Respiratory Rate [16-30 br/min] 18 br/min (11/26/21 8:00 AM) 18 br/min (11/26/21 3:44 AM) 20 br/min (11/25/21 11:59 PM) Temperature [96.8-100.4 DegF] 99.8 DegF (11/26/21 8:00 AM) 98.3 DegF (11/26/21 3:44 AM) 98.1 DegF (11/25/21 11:59 PM) Liters per Minute 5 L/min (11/25/21 12:43 PM) 0 L/min (11/24/21 7:00 PM) Mode of Delivery (Oxygen) Room air (11/26/21 8:00 AM) Room air (11/26/21 3:44 AM) Room air (11/25/21 11:59 PM) Blood pressure sites Arm, right (11/26/21 8:00 AM) Arm, right (11/26/21 3:44 AM) Arm, right (11/25/21 11:59 PM) Temperature Route Oral (11/26/21 8:00 AM) Temporal (11/26/21 3:44 AM) Temporal (11/25/21 11:59 PM) Dry Weight 64.0 kg (11/23/21 4:05 PM) 65 kg (11/23/21 3:20 PM) 65 kg (11/23/21 12:51 PM) Weight Obtained Via Bed scale (11/26/21 6:34 AM) Bed scale (11/25/21 7:30 AM) Bed scale (11/23/21 4:05 PM) Dry Weight Obtained Via Bed scale (11/23/21 4:05 PM)
--- OUTSIDE RECORDS SUMMARY | 2024-02-19 13:33 | XMS_ITS | Continuity of Care Document ---
Author Organization [facility] Address [address] [facility] [place] [address]- Care Team Providers Care Registered Nurse Maternity Name Role Phone Melida TAI, Duglas Cedeno Primary Care Physician Encounter 08/15/23 - 08/22/23 [facility] [address] [facility], [address] [place] [address]- Attending Physician: Duglas Montez NP Admitting Physician: [...] Exam Date Time Procedure Performing Provider Status 08/15/23 3:49 PM US Breast Right Limited Ruthann Valadez; Auth (Verified) Notes: (US Breast Right Limited) Reason For Exam: RIGHT ABNORMAL MAMMOGRAM RESULT: US Breast Right Limited PROCEDURE: MM Digital Mammo Unilat Right, US Breast Right Limited INDICATION: Questionable distortion in the central right breast on screening mammography performed on 07/28/2022. COMPARISON: Prior mammograms most recently dated 07/28/2023. TECHNIQUE: Digital diagnostic 3-D TOMOSYNTHESIS mammogram consisting of spot compression craniocaudal and mediolateral views of the right breast. Computer- aided detection (CAD) was utilized in the interpretation of this study. In addition, targeted high-resolution ultrasound of right breast limited. MAMMOGRAM: DENSITY: The breast tissue is heterogeneously dense, which may obscure masses. FINDINGS: The questionable distortion resolves into normal fibroglandular tissue and fat without evidence of underlying suspicious abnormality. RIGHT BREAST ULTRASOUND SCAN LIMITED: Real-time high-resolution ultrasound scan was performed targeted to the retroareolar and 6:00 rightbreast. There is normal breast tissue without evidence of suspicious abnormality. There is no evidence of a solid or cystic breast mass. IMPRESSION: There is no mammographic or sonographic evidence of malignancy. RECOMMENDATION: Annual mammographic screening BI-RADS: 2 (Benign) Lay letter mailed to patient WSN: [id number] Ordering Physician: Duglas Monetz NP Dictated By: Jessi Amado MD Dictated Date/Time: 08/15/23 3:58 pm Reviewed By: Jessi Amado MD Signed By: Jessi Amado MD Signed Date/Time: 08/15/23 3:58 pm Transcribed By: SHANDRA Transcribed Date/Time: 08/15/23 3:42 pm * Exam Date Time Procedure Performing Provider Status 08/15/23 3:41 PM MM Digital Mammo Unilat Right Nicole Sanches; Sergo (Verified) Notes: (MM Digital Mammo Unilat Right) Reason For Exam: RIGHT ABNORMAL MAMMOGRAM RESULT: MM Digital Mammo Unilat Right PROCEDURE: MM Digital Mammo Unilat Right, US Breast Right Limited INDICATION: Questionable distortion in the central right breast on screening mammography performed on 07/28/2022. COMPARISON: Prior mammograms most recently dated 07/28/2023. TECHNIQUE: Digital diagnostic 3-D TOMOSYNTHESIS mammogram consisting of spot compression craniocaudal and mediolateral views of the right breast. Computer- aided detection (CAD) was utilized in the interpretation of this study. In addition, targeted high-resolution ultrasound of right breast limited. MAMMOGRAM: DENSITY: The breast tissue is heterogeneously dense, which may obscure masses. FINDINGS: The questionable distortion resolves into normal fibroglandular tissue and fat without evidence of underlying suspicious abnormality. RIGHT BREAST ULTRASOUND SCAN LIMITED: Real-time high-resolution ultrasound scan was performed targeted to the retroareolar and 6:00 rightbreast. There is normal breast tissue without evidence of suspicious abnormality. There is no evidence of a solid or cystic breast mass. IMPRESSION: There is no mammographic or sonographic evidence of malignancy. RECOMMENDATION: Annual mammographic screening BI-RADS: 2 (Benign) Lay letter mailed to patient WSN: [id number] Ordering Physician: Duglas Montez NP Dictated By: Jessi Amado MD Dictated Date/Time: 08/15/23 3:58 pm Reviewed By: Jessi Amado MD Signed By: Jessi Amado MD Signed Date/Time: 08/15/23 3:58 pm Transcribed By: SHANDRA Net Developer Consultant Date/Time: 08/15/23 3:42 pm Birads: Social History Social History Type Response Smoking Status 10 or more cigarette s (1/2 pack or more)/day in last 30 days; Other: 1ppd x 23y; entered on: 11/23/22 Sex Patient Care team information Care Team Personnel Name: Herman Lay RN Position: DEVINS RN Member Role: Primary Care Nurse Name: Duglas Montez NP Position: Reference Physician Member Role: PCP Address: Address: [address] [place] [phone]- Name: Delores Christy RN Position: DEVINS RN Member Role: Primary Care Nurse Name: Lucrecia Chan RN Position: DEVINS RN Member Role: Primary Care Nurse Care Team Related Persons Name: ANNAMARIE STRICKLAND Address: home [address] [place] [address] Name: ROBERT TOTH Address: home [address] [place] [phone]
[2024-02-19 13:44] VITALS: BP 112/70; PULSE 67; TEMP 36.9; O2SAT 98
--- NOTE | 2024-02-19 13:44 | MHC.OFFWIV ---
Intake Vital Signs 02/19/24 13:44 Height 5 ft 7 in BP 112/70 Blood Pressure Location Rt brachial Position Sitting Pulse 67 Pulse Source Pulse Oximeter Temp 98.5 F Temp Source Oral Pulse Oximetry (%) 98 Oxygen Delivery Method Room Air Intake Visit Reasons: EP cold symptoms Intake Note: pt is here today for cough, congestion started last monday Patient Tobacco Use Status: Current everyday Tobacco user Allergies No Known Allergies Allergy (Verified 02/19/24 14:15) Do you need a note to return to daycare/school/sports/work: Yes HPI HPI Comments History of Present Illness Details Patient presents to the walk in for sick visit Reports one-week of cough cough, has been productive of yellow sputum for last couple of days Reports one-week ago had some right-sided earache and throat pain but that has since resolved Denies sinus congestion, headache, fatigue, bodyaches. Denies fever, chest pain, shortness of breath, palpitations, syncope, weakness Has been taking OTC medications, DayQuil and Delsym without improvement [facility] Medical History Cervical neck pain with evidence of disc disease Insomnia Surgical History History of cervical spinal surgery Family History Father Diabetes Substance use disorder Mother Diabetes Schizophrenia Mental health disorder Maternal Uncle Substance use disorder Social History Housing: House Alcohol intake: never Patient Tobacco Use Status: Current everyday Tobacco user Cigarette Packs Per Day: 1 e-Cigarette/Vaping Use: Never Used Second Hand Smoke Exposure: Yes service: No 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al status: employed 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 Answers questions appropriately. Fully engaged in examination. Skin: warm, dry, intact HEENT: TMs intact bilaterally, no redness. Posterior pharynx without erythema or exudate. Sclera without icterus or injection. Cardiac: External chest normal in appearance. Respiratory: LSCTAB. Abdomen: without gross distension. Neurological: Oriented to person, place, time and situation. Thought process intact. Psychiatric: Appropriate mood and affect. Good judgment and insight. Assessment & Plan Assessment & Plan (1) Cough: Code(s): R05 - Cough Plan Z-Jeremy as prescribed Rest, drink plenty of fluids, tylenol or motrin as needed. Follow up with pcp or in clinic for any new or worsening symptoms. Go to ER for shortness of breath, chest pain, palpitations, weakness, dizziness. Medications: New azithromycin For 250 mg dose pack: take 500 mg today (day 1), then 250 mg for 4 days (days 2-5) PO 6 tabs 0RF Coding Level of Care Code Est Pt Level 3 (13497) Diagnoses Cough R05
== END 2024-02-19 14:50 | disposition home or self-care (01) ==
PROVIDERS: PCP Nurse Practitioner Family; Visit Provider Registered Nurse Emergency
DX: R05.9 Cough, unspecified (principal)
CPT/HCPCS: 99213

== ENCOUNTER 2024-07-23 15:54 | Outpatient (AMB) | payer OTHER, SELFPAY ==
[2024-07-23 15:55] VITALS: BP 108/70; PULSE 72; O2SAT 99; BMI 23.2
--- NOTE | 2024-07-23 15:55 | A.OFFPC_ITS ---
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 Pt will call for her own mammo. Pt needs a referral for a pap. She reports hot flashes intermittent. Pt reports right lateral elbow pain x months. [facility] Medical History Cervical neck pain with evidence of disc disease Insomnia Surgical History History of cervical spinal surgery Family History Father Diabetes Substance use disorder Mother Diabetes Schizophrenia Mental health disorder Maternal Uncle Substance use disorder Social History Housing: House Alcohol intake: never Patient Tobacco Use Status: Current everyday Tobacco user Cigarette Packs Per Day: 1 e-Cigarette/Vaping Use: Never Used Second Hand Smoke Exposure: Yes service: No 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al status: employed 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: [employer] 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al exposures/hazards: No Cognitive needs: No Hearing needs: No Vision needs: No Questionnaire PHQ-9 Over the last 2 weeks, how often have you been bothered by any of the following problems? 1. Little interest or pleasure in doing things: not at all 2. Feeling down, depressed, or hopeless: not at all 3. Trouble falling or staying asleep, or sleeping too much: not at all 4. Feeling tired or having little energy: not at all 5. Poor appetite or overeating: not at all 6. Feeling bad about yourself - or that you are a failure or have let yourself or your family down: not at all 7. Trouble concentrating on things, such as reading the newspaper or watching television: not at all 8. Moving or speaking so slowly that other people could have noticed. Or the opposite - being so fidgety or restless that you have been moving around a lot more than usual: not at all 9. Thoughts that you would be better off or of hurting yourself in some way: not at all Total score: 0 Depression Screening Interpretation: Negative Depression Screening Done: Yes 60750 - PHQ-9 Billing: Yes Source: Developed by Drs. Donnie Delcid, Chen Zurita, Nik العلي and colleagues, with an educational john paul from [employer]. Thrive Questionnaire Date Thrive assessed: 07/23/24 I am a: Patient What is your living situation today?: I have a steady place to live Within the past 12 months, did the food you bought not last and you didn't have the money to get more?: Never true Within the past 12 months, did you worry whether your food would run out before you got money to buy more?: Never true Do you have trouble paying for medicines?: No Do you have trouble getting transportation to medical appointments?: No Do you have trouble paying your heating and electricity bill?: Yes Do you have trouble taking care of your child, family member or friend?: No Do you have trouble with day-to-day activities such as bathing, preparing meals, shopping, managing finances, etc.?: No Are you currently unemployed and looking for a job?: No Are you interested in more education?: No Please select the resources that you would like help with: None Currently or been in a relationship where the following occur: No concerns reported THRIVE Score: 1 AUDIT C Alcohol Use Questionnaire (AUDIT-C) 1. How often do you have a drink containing alcohol?: Never 3. How often do you have six or more drinks on one occasion?: Never Total Score: 0 Score Reviewed/Action Taken: Yes JAMARI-7 AMB Questionnaire JAMARI-7 Date JAMARI - 7 assessed: 07/23/24 Feeling nervous, anxious, or on edge: 0 = Not at all Not being able to stop or control worryin = Not at all Worrying too much about different things: 0 = Not at all Trouble relaxin = Not at all Being so restless that it is hard to sit still: 0 = Not at all Becoming easily annoyed or irritable: 0 = Not at all Feeling afraid as if something awful might happen: 0 = Not at all Total JAMARI-7 score (0-4 normal; 5-9 mild; 10-14 moderate; 15-21 severe): 0 Source: Developed by Drs. Donnie Delcid, Chen Zurita, Nik العلي and colleagues, with an educational john paul from [employer]. JAMARI-7 Assessment Billing JAMARI-7 Assessment Tool: JAMARI-7 Assessment 22378 Review of Systems Const Denies chills and Denies fever(s) Eyes Denies blurry vision ENT Denies vertigo, Denies dizziness and Denies sore throat Card Denies chest pain at rest, Denies chest pain with activity, Denies diaphoresis, Denies dyspnea and Denies dyspnea on exertion Resp Denies cough, Denies dyspnea, Denies dyspnea on exertion and Denies wheezing GI Denies abdominal pain, Denies melena, Denies hematochezia, Denies constipation, Denies diarrhea and Denies loose stools Denies hematuria Musc Denies numbness and Denies tingling Skin/Breast Denies lesions Neuro Denies vertigo, Denies dizziness, Denies numbness and Denies tingling Psych Denies anxiety, Denies depression, Denies homicidal ideation, Denies suicidal ideation and Denies other (substance abuse) Aller/Immun Denies wheezing Physical exam (Primary Care) Vital Signs: Last Vital Signs Pulse 72 07/23/24 15:55 BP 108/70 07/23/24 15:55 Pulse Ox 99 07/23/24 15:55 BMI result Body Mass Index 23.2 Tobacco/Smoking Status: Tobacco use Status Tobacco use date assessed 11/14/23 07/23/24 15:56 Patient Tobacco Use Status Current everyday Tobacco 07/23/24 15:56 e-Cigarette/Vaping Use Never Used 07/23/24 15:56 PHQ-9: PHQ-9 Score PHQ-9: Total score 0 07/23/24 15:56 Depression Screening Interpretation: Negative Thrive Assessment: Date of Thrive Assessment Date Thrive assessed 07/23/24 07/23/24 15:56 Currently or been in a relationship where the following occur: No concerns reported Const General: cooperative Nutritional Appearance: well nourished Orientation/consciousness: patient oriented x3 HENMT Head: Yes normal to inspection, Yes normocephalic and Yes atraumatic Ears: TM normal on the right and TM normal on the left Eyes General: appearance normal, both eyes and all related structures Alignment and Position: alignment normal and position normal Neck Neck: Yes normal visual inspection, Yes no lymphadenopathy and Yes supple Resp Effort & Inspection: normal respiratory effort Auscultation: clear to auscultation bilaterally Cardio Rate: regular rate Rhythm: regular rhythm Heart sounds: S1 normal heart sound present, S2 normal heart sound present and no murmurs GI Palpation (GI): Soft to palpation and nontender Auscultation: normal bowel sounds Skin Rashes: no rashes Neuro General: patient oriented x3, moves all extremities, no focal motor deficits and deep tendon reflexes 2+ bilaterally Romberg Test: Negative Extrem Other: with pt's RUE extended, wrist extension against resistance causes lateral right elbow pain. Right lower extremity: no edema Left lower extremity: no edema Psych Affect: normal affect Attitude: cooperative Thought process: Normal thought process present Coding Level of Care Code Est Pt Prev Care 40-64y(80581) Diagnoses Physical exam Z00.00 Katherine-menopausal N95.1 Screening for cervical cancer Z12.4 Smoker F17.200 Lateral epicondylitis of elbow M77.10 Additional Codes JAMARI-7 Assessment Billing - JAMARI-7 Assessment Tool: JAMARI-7 Assessment 33721 ([id number]) PHQ-9 - 59656 - PHQ-9 Billing: Yes ([id number]) Assessment & Plan Assessment & Plan (1) Physical exam: Code(s): Z00.00 - Encounter for general adult medical examination without abnormal findings Category: Medical Plan: labs ordered (2) Katherine-menopausal: Code(s): N95.1 - Menopausal and female climacteric states Category: Medical (3) Screening for cervical cancer: Code(s): Z12.4 - Encounter for screening for malignant neoplasm of cervix Category: Medical Plan: referred (4) Smoker: Code(s): F17.200 - Nicotine dependence, unspecified, uncomplicated Category: Social Hx Plan: knows the risks and dangers with smoking (5) Lateral epicondylitis of elbow: Code(s): M77.10 - Lateral epicondylitis, unspecified elbow Category: Medical Plan: encouraged use of a tennis elbow brace and use of NSAIDS/tylenol. She will contact me with any worsening symptoms Plan as above Orders: Orders Complete Blood Count Auto Diff Today Z00.00 - Encounter for general adult medical examination without abnormal findings UA CC w/rflx Micro + Cult Today Z00.00 - Encounter for general adult medical examination without abnormal findings Comprehensive [place]. Panel Fast Today Z00.00 - Encounter for general adult medical examination without abnormal findings TSH reflex Free T4 Today Z00.00 - Encounter for general adult medical examination without abnormal findings Lipid Panel Today Z00.00 - Encounter for general adult medical examination without abnormal findings Referrals [facility] Referral N95.1 - Menopausal and female climacteric states, Z12.4 - Encounter for screening for malignant neoplasm of cervix Medications: New ibuprofen 800 mg PO Q8H 30 days PRN 90 tabs 0RF pain
== END 2024-07-23 16:54 | disposition home or self-care (01) ==
PROVIDERS: PCP Nurse Practitioner Family; Visit Provider Nurse Practitioner Family
DX: Z00.00 Encounter for general adult medical examination without abnormal findings (principal); N95.1 Menopausal and female climacteric states; Z12.4 Encounter for screening for malignant neoplasm of cervix; F17.200 Nicotine dependence, unspecified, uncomplicated; M77.10 Lateral epicondylitis, unspecified elbow

== ENCOUNTER → 2024-07-23 15:54 | Outpatient (BNVA) | payer OTHER, SELFPAY | PROVIDERS: PCP Nurse Practitioner Family; Visit Provider Nurse Practitioner Family | DX: Z00.00 Encounter for general adult medical examination without abnormal findings (principal); N95.1 Menopausal and female climacteric states; M77.10 Lateral epicondylitis, unspecified elbow; F17.210 Nicotine dependence, cigarettes, uncomplicated | CPT/HCPCS: 96127 ==

== ENCOUNTER 2025-03-26 08:59 | Outpatient (REF) | payer OTHER, SELFPAY ==
--- NOTE | ~2025-03-26 | XR_ITS ---
EXAMINATION: XR CERVICAL SPINE CLINICAL INFORMATION: M54.12 - Radiculopathy, cervical region COMPARISON: November 05, 2018. TECHNIQUE: AP and lateral views FINDINGS: Craniocervical junction is intact. Marginal osteophyte formation and endplate sclerosis with decreased intervertebral disc height at C5-6 and to a lesser extent C4-5 and C6-7 levels. Grade 1 retrolisthesis C5-6. No lytic or blastic lesions. XR/XR cervical spine 2V IMPRESSION: Cervical spondylosis C4 C7 pronounced at C5-6 resulting in grade 1 retrolisthesis. Electronically signed by: Jevon Sun MD 03/26/2025 10:45 AM EDT
== END 2025-03-26 09:00 | disposition home or self-care (01) ==
LOC: HO.HMGCX 08:59
PROVIDERS: PCP Nurse Practitioner Family; Visit Provider Internal Medicine
DX: M54.12 Radiculopathy, cervical region (principal)
CPT/HCPCS: 72040

== ENCOUNTER 2025-03-26 08:59 | Outpatient (AMB) | payer OTHER, SELFPAY ==
[2025-03-26 09:12] VITALS: BP 110/62; PULSE 70; TEMP 36.7; O2SAT 99; BMI 22.9
--- NOTE | 2025-03-26 09:12 | AM.OFFWIN_ITS ---
Intake Vital Signs 03/26/25 09:12 Height 5 ft 7 in Weight 146 lb 4 oz BMI 22.9 BP 110/62 Blood Pressure Location Rt brachial Position Sitting Pulse 70 Pulse Source Pulse Oximeter Temp 98.0 F Temp Source Oral Pulse Oximetry (%) 99 Oxygen Delivery Method Room Air Intake Visit Reasons: EP-lt shoulder & arm pain Patient Tobacco Use Status: Current everyday Tobacco user [employer] Required: No Is last menstrual period known: Yes Last menstrual period: 12/09/24 Post menopausal: No Patient : No Allergies No Known Allergies Allergy (Verified 03/26/25 09:17) Medication List - Last Reconciled 03/26/25 by Camille Church MD cyclobenzaprine 5 mg PO TID ibuprofen 800 mg PO Q8H PRN 30 days lidocaine 5% 1 patch topical Q3D trazodone 100 mg (2 x 50 mg) PO BEDTIME PRN 90 days Do you need a note to return to daycare/school/sports/work: Yes HPI EP-lt shoulder & arm pain HPI Details History - The patient is a 44-year-old female pr esenting with left shoulder and arm pain. - The pain began approximately one week prior to the visit, around the shoulder blade area on the left side, and subsequently radiated down the arm. - Associated symptoms include tingling s ensations in the fingers, described as pins and needles. - The patient has a history of tennis el bow, for which she mentions using a brace, although this has not provided relief in this instance. - She sought treatment at urgent care on the Monday before the visit, where she was prescribed muscle relaxers (Cyclobenzaprine), ibuprofen, and lidocaine, none of which relieved the symptoms. - The pain has intensified to the point where driving is described as excruciating, and she has not been able to work since the prior Monday. 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 - No recent injuries, accidents, heavy l ifting, or unusual physical activities were reported. - The patient experiences some weakness in the hand but is still able to move. - Denied any accidents causing jolting o f the neck. Medical History: - Tennis elbow (left side, previous epis ode). Medications: - Cyclobenzaprine 5 mg, taken 3 times a day, completed as prescribed. - Ibuprofen 800 mg, as prescribed for pa in management. - Lidocaine, applied for symptom relief, which was reported as ineffective. - Extra Strength Tylenol, taken for santhosh tional pain relief. 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 Problem List - Left shoulder and arm pain - Tingling sensations in fingers - History of tennis elbow Patient Instructions - Take prescribed prednisone with food a s discussed. - Start gabapentin for nerve pain as dir ected. - Continue with ibuprofen as needed for pain management. - Follow up with primary care physician if symptoms do not improve. - Rest arm and minimize activities that exacerbate pain. - Return to work on the following Monday . - proceed for neck X ray today Review of Systems - General: No fever no chills - Neurological: No headaches no dizziness - Ear nose throat: No sore throat no hearing difficulty no ear pain - Cardiovascular: No syncope, no chest pain, no palpitations - Gastrointestinal: No nausea vomiting or diarrhea Physical Exam General: No acute distress HEENT: No acute findings Neck: Supple, discomfort with right rotation towards left upper back Respiratory system: Able to talk in full sentences, no audible wheeze Gastrointestinal: No pain Extremities: Left shoulder no pain with palpation, ROM intact, with some soreness at 90 degree towards upper back BRIDGE CARPENTER: Alert awake oriented x3 motor sensory intact, motor left hand 5/5, vascular intact Skin: Normal turgor [facility] Medical History Cervical neck pain with evidence of disc disease Insomnia Surgical History History of cervical spinal surgery Family History Father Diabetes Substance use disorder Mother Diabetes Schizophrenia Mental health disorder Maternal Uncle Substance use disorder Social History Housing: House Alcohol intake: never Patient Tobacco Use Status: Current everyday Tobacco user Cigarette Packs Per Day: 1 e-Cigarette/Vaping Use: Never Used Second Hand Smoke Exposure: Yes Patient : No service: No 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al status: employed 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: bank 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al exposures/hazards: No Cognitive needs: No Hearing needs: No Vision needs: No Female Reproductive History Menstrual Date of last menstrual period: 12/09/24 Physical Exam Vital Signs: Last Vital Signs Temp 98.0 F 03/26/25 09:12 Pulse 70 03/26/25 09:12 BP 110/62 03/26/25 09:12 Pulse Ox 99 03/26/25 09:12 Oxygen Delivery Method Room Air 03/26/25 09:12 BMI result Body Mass Index 22.9 Assessment & Plan Assessment & Plan (1) Cervical radicular pain: Code(s): M54.12 - Radiculopathy, cervical region Plan History - The patient is a 44-year-old female presenting with left shoulder and arm pain. - The pain began approximately one week prior to the visit, around the shoulder blade area on the left side, and subsequently radiated down the arm. - Associated symptoms include tingling sensations in the fingers, described as pins and needles. - The patient has a history of tennis elbow, for which she mentions using a brace, although this has not provided relief in this instance. - She sought treatment at urgent care on the Monday before the visit, where she was prescribed muscle relaxers (Cyclobenzaprine), ibuprofen, and lidocaine, none of which relieved the symptoms. - The pain has intensified to the point where driving is described as excruciating, and she has not been able to work since the prior Monday. 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 - No recent injuries, accidents, heavy lifting, or unusual physical activities were reported. - The patient experiences some weakness in the hand but is still able to move. - Denied any accidents causing jolting of the neck. Medical History: - Tennis elbow (left side, previous episode). Medications: - Cyclobenzaprine 5 mg, taken 3 times a day, completed as prescribed. - Ibuprofen 800 mg, as prescribed for pain management. - Lidocaine, applied for symptom relief, which was reported as ineffective. - Extra Strength Tylenol, taken for additional pain relief. 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 Problem List - Left shoulder and arm pain - Tingling sensations in fingers - History of tennis elbow Patient Instructions - Take prescribed prednisone with food as discussed. - Start gabapentin for nerve pain as directed. - Continue with ibuprofen as needed for pain management. - Follow up with primary care physician if symptoms do not improve. - Rest arm and minimize activities that exacerbate pain. - Return to work on the following Monday. - proceed for neck X ray today Orders: Orders XR cervical spine 2V Today M54.12 - Radiculopathy, cervical region Medications: New methylprednisolone (Medrol (Jeremy)) PO PER PKG DIR 21 ea 0RF 6 days gabapentin 100 mg PO BEDTIME 14 caps 0RF Coding Level of Care Code Est Pt Level 4 (35755) Diagnoses Cervical radicular pain M54.12
--- OUTSIDE RECORDS SUMMARY | 2025-03-26 09:25 | XMS_ITS | Clinical Summary ---
Author Organization [facility] it Address [address] [place] [address] Care Team Providers Care Garment Examiner Name Role Phone Hannah Caballero MD Primary Care Provider Surgical History Surgery Date Site/Laterality Comments EYE SURGERY PROCEDURE: HISTORICAL EYE SURGERY OTHER SURGICAL HISTORY PROCEDURE: ---- OTHER ----; COMMENT: breast implants OTHER SURGICAL HISTORY PROCEDURE: [place] BIOPSY CERVIX SINGLE/MULT/EXCISION OF LESION SPX; COMMENT: 2001 Medical History Medical History Date Comments MDD (major depressive disorder) 08/11/2009 DX:MDD (major depressive disorder) Family History Medical History Relation Name Comments Diabetes Maternal Grandmother Other cancer Maternal Grandmother Relation Name Status Comments Father Alive hep c , liver t ransplant Maternal Grandfather (Age 40) mi Maternal Grandmother Alive dm Mother Alive depression Paternal Grandfather Alive Paternal Grandmother (Age 40's) cancer Social History Tobacco Use Types Packs/Day Years Used Date Smoking Tobacco: Every Day Cigarettes Smokeless Tobacco: Never Alcohol Use Standard Drinks/Week Comments No 0 (1 standard drink = 0.6 oz pur e alcohol) Comments Unknown Sex and Gender Information Value Date Recorded Sex Assigned at Not on file Legal Sex Female 11:14 AM EST Gender Identity Not on file Sexual Orientation Not on file Obstetrics History Plan of Treatment Health Maintenance Due Date Last Done Comments Breast Cancer Screening 1980 Cervical Cancer Screening: P ap Smear 2001 Hepatitis B Vaccines (3 of 3 - 19+ 3-dose series) 08/14/2010 03/26/2010, 02/12/2010 DTaP,Tdap,and Td Vaccines (2 - Td or Tdap) 12/31/2022 12/31/2012 COVID-19 Vaccine (1 - 2023-2 5 season) 2024 Depression Screening 09/04/2024 Influenza Vaccine (#1) 2025 06/01/2011 HIB Vaccines Aged Out No longer eligi ble based on patient's age to complete this topic HPV Vaccines Aged Out No longer eligi ble based on patient's age to complete this topic Hepatitis A Vaccines Aged Out No long er eligible based on patient's age to complete this topic IPV Vaccines Aged Out No longer eligi ble based on patient's age to complete this topic MMR Vaccines Aged Out No longer eligi ble based on patient's age to complete this topic Meningococcal ACWY Vaccine Aged Out N o longer eligible based on patient's age to complete this topic Meningococcal B Vaccine Aged Out No l onger eligible based on patient's age to complete this topic Pneumococcal Vaccine: Pediatrics (0 to 5 Years) and At-Risk Patients (6 to 49 Years) Aged Out No longer eligible b ased on patient's age to complete this topic RSV Immunization Patients Under 20 months Aged Out No longer eligible b ased on patient's age to complete this topic Varicella Vaccines Aged Out No longer eligible based on patient's age to complete this topic Care Teams Garment Examiner Relationship Specialty Start Date End Date Hannah Caballero MD [address] [place] [address] PCP - General Internal Medicine 04/25/19
== END 2025-03-26 09:57 | disposition home or self-care (01) ==
PROVIDERS: PCP Nurse Practitioner Family; Visit Provider Internal Medicine
DX: M54.12 Radiculopathy, cervical region (principal)

== ENCOUNTER → 2025-03-26 09:45 | Outpatient (BNV) | payer OTHER, SELFPAY | PROVIDERS: PCP Nurse Practitioner Family; Visit Provider Radiology Diagnostic Radiology | DX: M43.12 Spondylolisthesis, cervical region (principal) | CPT/HCPCS: 72040 ==

== ENCOUNTER 2025-03-27 08:19 | Outpatient (AMB) | payer OTHER, SELFPAY ==
--- OUTSIDE RECORDS SUMMARY | 2025-03-27 08:33 | XMS_ITS | Clinical Summary ---
Author Organization [facility] [employer] [facility] it Address [address] [place] [address] Care Team Providers Care Summer School Coordinator Name Role Phone Hannah Caballero MD Primary Care Provider Surgical History Surgery Date Site/Laterality Comments EYE SURGERY PROCEDURE: HISTORICAL EYE SURGERY OTHER SURGICAL HISTORY PROCEDURE: ---- OTHER ----; COMMENT: breast implants OTHER SURGICAL HISTORY PROCEDURE: [place] BIOPSY CERVIX SINGLE/MULT/EXCISION OF LESION SPX; COMMENT: [...] age to complete this topic Care Teams Summer School Coordinator Relationship Specialty Start Date End Date Hannah Caballero MD [address] [place] [address] PCP - General Internal Medicine 04/25/19
--- NOTE | 2025-03-27 10:25 | MHC.PC.OV ---
Intake Visit Reasons: xray results Allergies No Known Allergies Allergy (Verified 03/26/25 09:17) Medication List - Last Reconciled 03/27/25 by Camille Church MD cyclobenzaprine 5 mg PO TID gabapentin 100 mg PO BEDTIME ibuprofen 800 mg PO Q8H PRN 30 days lidocaine 5% 1 patch topical Q3D methylprednisolone (Medrol (Jeremy)) PO PER PKG DIR 6 days trazodone 100 mg (2 x 50 mg) PO BEDTIME PRN 90 days Tobacco use date assessed: 11/14/23 Dental Screening Dental Screen Date: 11/14/23 HPI xray results HPI Details History - The patient is a 44-year-old female presenting with neck pain and left-sided radicular symptoms. - The neck pain and radicular symptoms began recently and are associated with marginal osteophyte formation at the C5 and C6 vertebrae noted on the X-ray. - The X-ray also shows decreased intervertebral disc height at C5-C6 and a lesser extent between C4-5 and C6-7, as well as grade 1 retrolisthesis of C5-C6. - The patient reports feeling a little better after one day of taking prescribed medications. - Reports taking Medrol Dosepak, cyclobenzaprine, and gabapentin at bedtime, which have partially alleviated her symptoms. Medications: - Medrol Dosepak for inflammation management. - Cyclobenzaprine for muscle spasm control. - Gabapentin at bedtime for neuropathic pain management. Diagnostic Results: - X-ray Report: Shows marginal osteophyte formation and decreased intervertebral disc height at C5-C6. Lesser extent between C4-5 and C6-7. Grade 1 retrolisthesis of C5-C6. Radicular symptoms are left-sided. Problem List - Marginal osteophyte formation at C5-C6 - Decreased intervertebral disc height at C5-C6 - Grade 1 retrolisthesis of C5-C6 - Left-sided radicular symptoms Patient Instructions - Continue taking your medications as prescribed. - Reach out to your primary care physician for further management. Review of Systems. - General: No fever no chills - Neurological: No headaches no dizziness - Ear nose throat: No sore throat no hearing difficulty no ear pain - Cardiovascular: No syncope, no chest pain, no palpitations - Gastrointestinal: No nausea vomiting or diarrhea [facility] Medical History Cervical neck pain with evidence of disc disease Insomnia Surgical History History of cervical spinal surgery Family History Father Diabetes Substance use disorder Mother Diabetes Schizophrenia Mental health disorder Maternal Uncle Substance use disorder Social History Housing: House Alcohol intake: never Patient Tobacco Use Status: Current everyday Tobacco user Cigarette Packs Per Day: 1 e-Cigarette/Vaping Use: Never Used Second Hand Smoke Exposure: Yes service: No 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al status: employed 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: [employer] 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al exposures/hazards: No Cognitive needs: No Hearing needs: No Vision needs: No Questionnaire Thrive Questionnaire Date Thrive assessed: 07/23/24 JAMARI-7 AMB Questionnaire JAMARI-7 Date JAMARI - 7 assessed: 07/23/24 Source: Developed by Drs. Donnie Delcid, Chen Zurita, Nik العلي and colleagues, with an educational john paul from [employer]. Physical exam (Primary Care) Tobacco/Smoking Status: Tobacco use Status Tobacco use date assessed 11/14/23 03/27/25 10:25 Patient Tobacco Use Status Current everyday Tobacco 03/27/25 10:25 e-Cigarette/Vaping Use Never Used 03/27/25 10:25 Thrive Assessment: Date of Thrive Assessment Date Thrive assessed 07/23/24 03/27/25 10:25 Telehealth Telehealth Telehealth Platform: [facility] Location of provider rendering services: practice address Location of patient: address on file Patient Identification confirmed using: Name, : Yes Telehealth method: video Patient verbally consented to treatment: Yes Patient verbally consented to billing insurance company: Yes Patient informed of any privacy concerns related to visit: Yes Minutes spent on Phone/Video with Pt.: 13 Coding Level of Care Code Tele Est Pt Level 3 (96382) Diagnoses Cervical radicular pain M54.12 Cervical disc disease M50.90 Assessment & Plan Assessment & Plan (1) Cervical radicular pain: Code(s): M54.12 - Radiculopathy, cervical region Category: Medical (2) Cervical disc disease: Code(s): M50.90 - Cervical disc disorder, unspecified, unspecified cervical region Category: Medical Plan History - The patient is a 44-year-old female presenting with neck pain and left-sided radicular symptoms. - The neck pain and radicular symptoms began recently and are associated with marginal osteophyte formation at the C5 and C6 vertebrae noted on the X-ray. - The X-ray also shows decreased intervertebral disc height at C5-C6 and a lesser extent between C4-5 and C6-7, as well as grade 1 retrolisthesis of C5-C6. - The patient reports feeling a little better after one day of taking prescribed medications. - Reports taking Medrol Dosepak, cyclobenzaprine, and gabapentin at bedtime, which have partially alleviated her symptoms. Medications: - Medrol Dosepak for inflammation management. - Cyclobenzaprine for muscle spasm control. - Gabapentin at bedtime for neuropathic pain management. Diagnostic Results: - X-ray Report: Shows marginal osteophyte formation and decreased intervertebral disc height at C5-C6. Lesser extent between C4-5 and C6-7. Grade 1 retrolisthesis of C5-C6. Radicular symptoms are left-sided. Problem List - Marginal osteophyte formation at C5-C6 - Decreased intervertebral disc height at C5-C6 - Grade 1 retrolisthesis of C5-C6 - Left-sided radicular symptoms Patient Instructions - Continue taking your medications as prescribed. - Reach out to your primary care physician for further management.
== END 2025-03-27 12:03 | disposition home or self-care (01) ==
LOC: HO.HMCC 08:19
PROVIDERS: PCP Nurse Practitioner Family; Visit Provider Internal Medicine
DX: M54.12 Radiculopathy, cervical region (principal); M50.90 Cervical disc disorder, unspecified, unspecified cervical region

== ENCOUNTER 2025-04-15 06:59 | Outpatient (AMB) | payer OTHER, SELFPAY ==
--- OUTSIDE RECORDS SUMMARY | 2025-04-15 07:02 | XMS_ITS | Clinical Summary ---
Author Organization [facility] [employer] [facility] it Address [address] [place] [address] Care Team Providers Care Medical Historian Name Role Phone Hannah Caballero MD Primary Care Provider Surgical History Surgery Date Site/Laterality Comments EYE SURGERY PROCEDURE: HISTORICAL EYE SURGERY OTHER SURGICAL HISTORY PROCEDURE: ---- OTHER ----; COMMENT: breast implants OTHER SURGICAL HISTORY PROCEDURE: [place] BIOPSY CERVIX SINGLE/MULT/EXCISION OF LESION SPX; COMMENT: [...] age to complete this topic Care Teams Medical Historian Relationship Specialty Start Date End Date Hannah Caballero MD [address] [place] [address] PCP - General Internal Medicine 04/25/19
--- NOTE | 2025-04-15 07:28 | A.OFFPC_ITS ---
Intake Visit Reasons: walk in follow up Allergies No Known Allergies Allergy (Verified 04/15/25 07:28) Medication List - Last Reconciled 04/15/25 by MAYNOR Person ibuprofen 800 mg PO Q8H PRN 30 days lidocaine 5% 1 patch topical Q3D trazodone 100 mg (2 x 50 mg) PO BEDTIME PRN 90 days Tobacco use date assessed: 11/14/23 Dental Screening Dental Screen Date: 11/14/23 HPI walk in follow up HPI Details History of Present Illness The patient is a 44-year-old female presenting with cervical radiculopathy. She was recently seen last month and was diagnosed with cervical radiculopathy. In itial treatment included cyclobenzaprine, gabapentin at a low dose, and a Medrol Dosepak, which provided symptom relief. Over the past few days, her symptoms have improved significantly. An X-ray rev ealed cervical spondylosis from C4 to C7, with pronounced changes at C5 and C6, resulting in grade 1 retrolisthesis. The patient has arthritis and wear and tear in the cervical region. She has not yet started physical therapy, which is planned to strengthen the area and prevent further injury or pain. She denies any current radiculopathy, neck pain, chest pain, shortness of breath, or dizziness. Review of Systems - Musculoskeletal: Denies current neck p ain or radiculopathy. - Cardiovascular: Denies chest pain. - Respiratory: Denies shortness of breat h. - Neurological: Denies dizziness. Plan The patient will be referred to physical therapy to strengthen the cervical region and prevent further injury or pain. She is advised to contact the clinician if she experiences any further discomfort or pain. Discussion Notes I discussed with the patient the findings of cervical spondylosis and the importance of physical therapy to manage her condition. We talked about the potential benefits of therapy in strengthening the cervical area and preventing further issues. I instructed her to reach out if she experiences any new or worsening symptoms. Patient Instructions - Start physical therapy as scheduled to strengthen your neck and prevent further issues. - Contact the doctor if you experience a ny new or worsening pain or discomfort. 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al exposures/hazards: No Cognitive needs: No Hearing needs: No Vision needs: No Questionnaire Thrive Questionnaire Date Thrive assessed: 07/17/24 I am a: Patient What is your living situation today?: I have a steady place to live Within the past 12 months, did the food you bought not last and you didn't have the money to get more?: Never true Within the past 12 months, did you worry whether your food would run out before you got money to buy more?: Never true Do you have trouble paying for medicines?: No Do you have trouble getting transportation to medical appointments?: No Do you have trouble paying your heating and electricity bill?: Yes Do you have trouble taking care of your child, family member or friend?: No Do you have trouble with day-to-day activities such as bathing, preparing meals, shopping, managing finances, etc.?: No Are you currently unemployed and looking for a job?: No Are you interested in more education?: No Please select the resources that you would like help with: None Currently or been in a relationship where the following occur: No concerns reported THRIVE Score: 1 AUDIT C Alcohol Use Questionnaire (AUDIT-C) 2. How many drinks containing alcohol do you have on a typical day when you are drinking?: 1 or 2 3. How often do you have six or more drinks on one occasion?: Never Total Score: 0 JAMARI-7 AMB Questionnaire JAMARI-7 Date JAMARI - 7 assessed: 07/23/24 Source: Developed by Drs. Donnie Delcid, Chen Zurita, Nik العلي and colleagues, with an educational john paul from [employer]. Physical exam (Primary Care) Tobacco/Smoking Status: Tobacco use Status Tobacco use date assessed 11/14/23 03/27/25 10:25 Patient Tobacco Use Status Current everyday Tobacco 03/27/25 10:25 e-Cigarette/Vaping Use Never Used 03/27/25 10:25 Thrive Assessment: Date of Thrive Assessment Date Thrive assessed 07/17/24 04/09/25 10:39 Currently or been in a relationship where the following occur: No concerns reported Telehealth Telehealth Telehealth Platform: [employer] Location of provider rendering services: practice address Location of patient: address on file Patient Identification confirmed using: Name, : Yes Telehealth method: video Patient verbally consented to treatment: Yes Patient verbally consented to billing insurance company: Yes Patient informed of any privacy concerns related to visit: Yes Minutes spent on Phone/Video with Pt.: 10 Coding Level of Care Code Tele Est Pt Level 3 (18249) Diagnoses Cervical neck pain with evidence of disc disease M50.90 Cervical radicular pain M54.12 Cervical disc disease M50.90 Assessment & Plan Assessment & Plan (1) Cervical neck pain with evidence of disc disease: Code(s): M50.90 - Cervical disc disorder, unspecified, unspecified cervical region Category: Medical (2) Cervical radicular pain: Code(s): M54.12 - Radiculopathy, cervical region Category: Medical (3) Cervical disc disease: Code(s): M50.90 - Cervical disc disorder, unspecified, unspecified cervical region Category: Medical Plan . Orders: Orders PT Evaluation and Treatment Today M50.90 - Cervical disc disorder, unspecified, unspecified cervical region, M54.12 - Radiculopathy, cervical region
== END 2025-04-15 07:52 | disposition home or self-care (01) ==
LOC: HO.HMCC 07:00
PROVIDERS: PCP Nurse Practitioner Family; Visit Provider Nurse Practitioner Family
DX: M50.90 Cervical disc disorder, unspecified, unspecified cervical region (principal); M54.12 Radiculopathy, cervical region

== ENCOUNTER 2025-08-06 15:58 | Outpatient (AMB) | payer OTHER, SELFPAY ==
[2025-08-06 16:03] VITALS: BP 104/62; PULSE 65; RESP 16; O2SAT 99; BMI 22.6
--- NOTE | 2025-08-06 16:03 | MHC.PC.OV ---
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 Accompanied by: Self / Same As Patient Allergies No Known Allergies Allergy (Verified 08/06/25 16:38) Medication List - Last Reconciled [facility]06/25 [facility] traz[facility] mg (2 x 50 mg) PO BEDTIME PRN 90 days Tobacco use date assessed: 08/06/25 Dental Screening Dental Screen Date: 08/06/25 Did you have a dental visit in the last 12 months?: Yes Did you have a dental problem in the last 6 months where you did not have access to dental care?: No Was dental information given to patient?: Patient has dentist HPI PE HPI Details History of Present Illness The patient is a 45 year old individual presenting for a physical exam. The patient reports doing well overall and denies chest pain, increased shortness of breath, abdominal pain, blood in stool, constipation, or diarrhea. The patient also denies any suicidal or homicidal ideation. The patient has a family history of a mother who had multiple polyps, including some precancerous ones, discovered during her first colonoscopy at age 65. The patient continues to smoke and is not currently interested in quitting. Health Maintenance The patient is due for a mammogram and will schedule this independently. As the patient is 45, a colon cancer screening is indicated, and a referral will be placed to gastroenterology for a colonoscopy. The patient was also advised to undergo fasting lab work in the near future. 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 Review of Systems - Constitutional: Reports doing quite well overall. - Cardiovascular: Denies chest pain. - Respiratory: Denies any increased shortness of breath. - Gastrointestinal: Denies abdominal pain, blood in stool, constipation, or diarrhea. - Psychiatric: Denies any suicidal or homicidal ideation. Physical Exam General: Cooperative, healthy appearing, comfortable, no acute distress and well developed Orientation: Patient oriented x3 Limitations: No limitations Head: Normal to inspection Ears: Hearing grossly normal bilaterally Nose: Normal external nose present Face and sinus: Normal facial exam Eyes: Appearance normal, both eyes and all related structures Neck: Normal visual inspection and Yes full ROM Respiratory: Normal respiratory effort and able to speak in complete sentences. Clear to auscultation bilaterally Cardiovascular: Regular rate and rhythm. Normal S1 and S2 GI: Normal to inspection. Soft to palpation and nontender Skin: No rashes or lesions noted Neuro: Patient oriented x3 Extremities: Normal to inspection Results Plan 1. Tobacco Use The patient continues to smoke and reports no interest in quitting at this time. 2. Family History Of Colonic Polyps Given the patient's age of 45 and a maternal history of multiple precancerous colonic polyps, a colonoscopy is recommended. A referral will be sent to gastroenterology for this screening. 3. physical exam Discussion Notes I discussed routine health maintenance with the patient, who is 45 years old. I advised a colon screening due to age and a significant family history of a mother with multiple precancerous polyps, and I will refer the patient to gastroenterology. I also reminded the patient about being due for a mammogram, which the patient stated they will schedule. The patient was instructed to complete fasting labs soon and acknowledged having a [employer] provider. We acknowledged the patient's continued smoking, and the patient is not currently interested in quitting. Patient Instructions - You are due for a mammogram. Please call to schedule this appointment. - We will send a referral to a gastroenterology (GI) specialist for you to schedule a colonoscopy, as this is recommended now that you are 45 years old. - This colon screening is especially important because your mother had precancerous polyps. - Please get fasting blood work done in the near future. 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al exposures/hazards: No Cognitive needs: No Hearing needs: No Vision needs: No Questionnaire Thrive Questionnaire Date Thrive assessed: 08/02/25 I am a: Patient What is your living situation today?: I have a steady place to live Within the past 12 months, did the food you bought not last and you didn't have the money to get more?: Never true Within the past 12 months, did you worry whether your food would run out before you got money to buy more?: Never true Do you have trouble paying for medicines?: No Do you have trouble getting transportation to medical appointments?: No Do you have trouble paying your heating and electricity bill?: No Do you have trouble taking care of your child, family member or friend?: No Do you have trouble with day-to-day activities such as bathing, preparing meals, shopping, managing finances, etc.?: No Are you currently unemployed and looking for a job?: No Are you interested in more education?: No Please select the resources that you would like help with: None Currently or been in a relationship where the following occur: No concerns reported THRIVE Score: 0 JAMARI-7 AMB Questionnaire JAMARI-7 Date JAMARI - 7 assessed: 07/23/24 Source: Developed by Drs. Donnie Delcid, Chen Zurita, Nik العلي and colleagues, with an educational john paul from [employer]. Physical exam (Primary Care) Vital Signs: Last Vital Signs Pulse 65 08/06/25 16:03 Resp 16 08/06/25 16:03 BP 104/62 08/06/25 16:03 Pulse Ox 99 08/06/25 16:03 Oxygen Delivery Method Room Air 08/06/25 16:03 BMI result Body Mass Index 22.6 Tobacco/Smoking Status: Tobacco use Status Tobacco use date assessed 08/06/25 08/06/25 16:04 Patient Tobacco Use Status Current everyday Tobacco 08/06/25 16:04 e-Cigarette/Vaping Use Never Used 08/06/25 16:04 Thrive Assessment: Date of Thrive Assessment Date Thrive assessed 08/02/25 08/06/25 16:04 Currently or been in a relationship where the following occur: No concerns reported Coding Level of Care Code Est Pt Prev Care 40-64y(77595) Diagnoses Screening for colon cancer Z12.11 Physical exam Z00.00 Smoker F17.200 Assessment & Plan Assessment & Plan (1) Screening for colon cancer: Code(s): Z12.11 - Encounter for screening for malignant neoplasm of colon Category: Medical (2) Physical exam: Code(s): Z00.00 - Encounter for general adult medical examination without abnormal findings Category: Medical (3) Smoker: Code(s): F17.200 - Nicotine dependence, unspecified, uncomplicated Category: Social Hx Plan . Orders: Referrals Gastroenterology Referral Z12.11 - Encounter for screening for malignant neoplasm of colon
--- OUTSIDE RECORDS SUMMARY | 2025-08-06 18:46 | XMS_ITS | Clinical Summary ---
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 Name Role Phone Hannah Caballero MD Primary Care Provider [phone] Surgical History Surgery Date Site/Laterality Comments EYE SURGERY PROCEDURE: HISTORICAL EYE SURGERY OTHER SURGICAL HISTORY PROCEDURE: ---- OTHER ----; COMMENT: breast implants OTHER SURGICAL HISTORY PROCEDURE: [place] BIOPSY CERVIX SINGLE/MULT/EXCISION OF LESION SPX; COMMENT: [...] Cervical Cancer Screening: P ap Smear 2001 HPV Vaccines (1 - 3-dose SCD M series) 2007 Hepatitis B Vaccines (3 of 3 - 19+ 3-dose series) 08/14/2010 03/26/2010, 02/12/2010 DTaP,Tdap,and Td Vaccines (2 - Td or Tdap) 12/31/2022 12/31/2012 Depression Screening 09/04/2024 COVID-19 Vaccine (1 - 2024-2 6 season) 2025 Influenza Vaccine (#1) 2025 06/01/2011 RSV Immunization Adult Patients (1 - 1-dose 75+ series) 2055 HIB Vaccines Aged Out No longer eligi [...] age to complete this topic Care Teams Petroleum Refinery Worker Relationship Specialty Start Date End Date Hannah Caballero MD [address] [place] [address] PCP - General Internal Medicine 04/25/19
== END 2025-08-06 17:00 | disposition home or self-care (01) ==
LOC: HO.HMCC 15:58
PROVIDERS: PCP Nurse Practitioner Family; Visit Provider Nurse Practitioner Family
DX: Z00.00 Encounter for general adult medical examination without abnormal findings (principal); Z12.11 Encounter for screening for malignant neoplasm of colon; F17.200 Nicotine dependence, unspecified, uncomplicated